=== PATIENT | male | born 1965 | race Caucasian/White ===

== ENCOUNTER 2017-08-11 19:43 | Inpatient (IN) ==
--- NOTE | 2017-08-11 19:57 | Emergency Department Note ---
Disposition Clinical Impression: NSTEMI (non-ST elevated myocardial infarction), Elevated troponin Chest pain Qualifiers: Chest pain type: unspecified Qualified Code(s): R07.9 - Chest pain, unspecified Disposition: Admitted As Inpatient Condition: Good Time of Disposition: 22:55 Chest Pain HPI - General Chief Complaint: ED Chest Pain Stated Complaint: cp Time Seen by Provider: 08/11/17 19:52 Source: patient Mode of arrival: ambulatory Limitations: no limitations Vital Signs Reviewed: Yes Nursing Notes Reviewed: Yes - History of Present Illness HPI Narrative: Patient is a 51-year-old male with past medical history of diabetes, no previous CAD. He presents today due to chest pain. The patient says that he has had chest pain in the center of his chest described as a dull ache, worse with exertion since last Thursday. It is intermittent, mainly occurs only when he is exerting himself. No radiation to arms back or jaw. Denies any associated shortness of breath, nausea, vomiting, sweating. He had an episode last Thursday and said that it went away after a few minutes. He had return of his chest pain last night, same description and symptoms as above. He also had several episodes of chest pain throughout today, starting when he first woke up out of sleep. Denies any other unilateral leg swelling, calf pain, long car rides, recent surgeries. Denies any previous VA or previous stents. He was seen at [facility] today, had an elevation in V3 at that time and had an elevated troponin level of 0.4. He was strongly encouraged to be transferred to our facility for further care/intervention/cardiology consult. However, patient refused and signed out AMA. A couple hours later, he drove here for further evaluation. Patient currently denies any chest pain, shortness breath, nausea, vomiting, fevers, abdominal pain. Severity scale (1-10): 0 - Related Data Home Medications Medication Instructions Recorded Confirmed Aspirin Enteric Coated [Aspirin EC] 325 mg PO DAILY 08/11/17 08/11/17 Metoprolol XL (24 HR) Succ [Toprol 25 mg PO DAILY 08/11/17 08/11/17 XL] Nitroglycerin [Nitrostat] 0.4 mg SL Q5M PRN 08/11/17 08/11/17 metFORMIN [Glucophage] 500 mg PO BIDWM 08/11/17 08/11/17 Allergies Allergy/AdvReac Type Severity Reaction Status Date / Time mushroom Allergy Anaphylaxis Verified 08/11/17 17:39 All systems ED: reviewed and negative except as stated. Constitutional: Denies: fever Cardiovascular: Denies: chest pain Respiratory: Denies: dyspnea Gastrointestinal: Denies: abdominal pain, nausea, vomiting, diarrhea Genitourinary: Denies: urgency, dysuria Integumentary: Denies: rash Neurological: Denies: headache, weakness, numbness, paresthesias Chest Pain PMH - Past Medical History Medical history: Reports: diabetes, hypertension, myocardial infarction Psychiatric history: Reports: no psych history - Social History Smoking Status: Never smoker Alcohol use: Reports: none Drug use: Reports: none Physical Exam - General Limitations: no limitations General appearance: alert, in no apparent distress - Head Head exam: atraumatic, normocephalic, normal inspection - Eye Eye exam: Present: normal appearance, PERRL, EOMI - ENT ENT exam: normal exam, normal oropharynx, mucous membranes moist - Neck Neck exam: Present: normal inspection, full ROM, trachea midline - Chest Chest inspection: Present: normal inspection, symmetric chest wall rise - Respiratory Respiratory exam: Present: normal lung sounds bilaterally - Cardiovascular Cardiovascular exam: Present: regular rate, normal rhythm, normal heart sounds - Abdominal Exam Abdominal exam: Present: soft, Non-Tender. Absent: tenderness, distention, guarding, rebound, rigidity - Extremities Exam Extremities exam: Present: normal inspection, full ROM. Absent: tenderness, pedal edema - Neurological Exam Neurological exam: Present: alert, oriented X3 - Psychiatric Psychiatric exam: Present: normal affect, normal mood - Skin Skin exam: Present: warm, dry, intact, normal color Course Course Narrative: Patient is currently not having any chest pain or shortness of breath. EKG obtained and showed ST elevation in V3 but no other ST changes. I talked with disabilities caregiver Dr. Brenda Miles at 20:09 and sent the EKG to her for evaluation along with previous EKG that was done at [facility] and also old EKG from 08/04/2017. She reviewed these and stated that there was no STEMI arteria. She recommended giving the patient an additional 90 mg upper left as he received 1 mg of prolapse at [facility] prior to arrival. She also recommended that we start heparin drip and a nitroglycerin drip even though the patient has no chest pain at this time. Patient was accepted by hospitalist Dr. Vuong for [facility] care for NSTEMI. 22:51 after patient was accepted for admission, he had return of chest pain and his oxygen saturation dropped to 88%. CTA of the chest was ordered and patient was titrated up on nitroglycerin. His chest pain is now currently down to 1. CTA of the chest abdomen and pelvis showed no pulmonary embolism but did show large bilateral pleural effusions with interstitial and alveolar pulmonary edema. No signs of any aortic dissection. Also possible superimposed pneumonia. Patient was started on Levaquin. Troponin came back elevated at 0.89 Repeat EKGs showed no changes in ST elevation in lead V3. We contacted Dr. Miles again around 22:45. Discussed case symptoms, vitals, lab results with new troponin elevation and return of chest pain, now down to 1 out of 10. She wanted to stay the course with heparin drip and nitro drip at this time. No recommendation for any other intervention or cath at this time. Information relayed to Dr. Vuong Chest CTA 08/11/17 21:11 IMPRESSION: No evidence of an acute aortic syndrome. Negative for acute pulmonary embolism. Large bilateral pleural effusions with interstitial and alveolar pulmonary edema. No acute abdominopelvic findings. D/ / 08/11/2017 22:23:52 Jose Sheffield / henry Interpreting Provider: Jose Sheffield Abdomen/Pelvis CTA 08/11/17 21:21 IMPRESSION: No evidence of an acute aortic syndrome. Negative for acute pulmonary embolism. Large bilateral pleural effusions with interstitial and alveolar pulmonary edema. No acute abdominopelvic findings. D/ / 08/11/2017 22:23:52 Jose Sheffield / henry Interpreting Provider: Jose Sheffield Vital Signs Temperature 98.3 F 08/11/17 19:48 Pulse Rate 103 08/11/17 19:48 Respiratory Rate 18 08/11/17 19:48 Blood Pressure 142/87 08/11/17 19:48 O2 Sat by Pulse Oximetry 92 08/11/17 19:48 Temperature 98.3 F 08/11/17 19:48 Pulse Rate 98 08/11/17 21:19 Respiratory Rate 21 08/11/17 21:21 Blood Pressure 131/89 08/11/17 21:19 O2 Sat by Pulse Oximetry 89 08/11/17 21:21 Oxygen Delivery Oxygen Delivery Room Air Chest Pain - MDM Narrative Medical decision making narrative: Patient is currently not having any chest pain or shortness of breath. EKG obtained and showed ST elevation in V3 but no other ST changes. I talked with disabilities caregiver Dr. Brenda Miles at 20:09 and sent the EKG to her for evaluation along with previous EKG that was done at [facility] and also old EKG from 08/04/2017. She reviewed these and stated that there was no STEMI arteria. She recommended giving the patient an additional 90 mg upper left as he received 1 mg of prolapse at [facility] prior to arrival. She also recommended that we start heparin drip and a nitroglycerin drip even though the patient has no chest pain at this time. Patient was accepted by hospitalist Dr. Vuong for [facility] care for NSTEMI. 22:51 after patient was accepted for admission, he had return of chest pain and his oxygen saturation dropped to 88%. CTA of the chest was ordered and patient was titrated up on nitroglycerin. His chest pain is now currently down to 1. CTA of the chest abdomen and pelvis showed no pulmonary embolism but did show large bilateral pleural effusions with interstitial and alveolar pulmonary edema. No signs of any aortic dissection. Also possible superimposed pneumonia. Patient was started on Levaquin. Troponin came back elevated at 0.89 Repeat EKGs showed no changes in ST elevation in lead V3. We contacted Dr. Miles again around 22:45. Discussed case symptoms, vitals, lab results with new troponin elevation and return of chest pain, now down to 1 out of 10. She wanted to stay the course with heparin drip and nitro drip at this time. No recommendation for any other intervention or cath at this time. Information relayed to Dr. Vuong - Medical Records Medical records reviewed: Yes I reviewed the patient's medical records. - Lab Data Lab results reviewed: Yes I reviewed the patient's lab results. Result diagrams: 08/11/17 19:50 Lab Results 08/11/17 08/11/17 Range/Units 19:50 19:50 WBC 10.9 (4.3-11.1) K/mcL RBC 4.30 (4.19-5.50) M/mcL Hgb 11.9 L (12.9-16.9) g/dL Hct 36.3 L (37.5-50.1) % MCV 84.4 (83.0-100.0) fL MCH 27.7 L (28.0-33.3) pg MCHC 32.8 (31.6-35.5) g/dL RDW 14.8 H (11.5-14.5) % Plt Count 271 (140-400) K/mcL MPV 11.3 (9.4-12.4) fL PT 12.2 H (9.4-12.1) Seconds INR 1.1 APTT 30.7 (26.0-36.0) Seconds - Radiology Data Radiology results reviewed: Yes I reviewed the patient's radiology results. Chest CTA 08/11/17 21:11 IMPRESSION: No evidence of an acute aortic syndrome. Negative for acute pulmonary embolism. Large bilateral pleural effusions with interstitial and alveolar pulmonary edema. No acute abdominopelvic findings. D/ : / 08/11/2017 22:23:52 Jose Sheffield / henry Interpreting Provider: Jose Sheffield Abdomen/Pelvis CTA 08/11/17 21:21 IMPRESSION: No evidence of an acute aortic syndrome. Negative for acute pulmonary embolism. Large bilateral pleural effusions with interstitial and alveolar pulmonary edema. No acute abdominopelvic findings. D/ : / 08/11/2017 22:23:52 Jose figueroa Interpreting Provider: Jose Sheffield - EKG Data EKG attestation: Yes I reviewed and interpreted this EKG. EKG results narrative: EKG #1 08/11/2017 at 19:49. Sinus tachycardia. Rate 103. AL 140. QRS 88. QTC 352. Mild left axis deviation. ST elevation in V3. No other acute ST changes. EKG #2. 08/11/2017 at 20:56. Sinus tachycardia. Rate 102. AL 144. QRS 88. QTC 357. Mild left axis deviation. ST elevation in V3 but no other ST elevation EKG #3. 08/11/2017 at 21:15. Normal sinus rhythm. Rate 99. AL 144. QRS 90. QTC 370. Mild left axis deviation. ST elevation in V3 unchanged. EKG #4. 08/11/2017 at 22:10. Sinus tachycardia. Rate 109. AL 132. QRS 87. QTC 381. Mild left axis deviation. Acute ST elevation in V3 unchanged. Clifford - Clifford Situation: Demographics, MOA Background: Presenting Complaint, Relevant PMH, Meds, & Allergies Assessment: Vital Signs, Course and respsone to treatment, Exam Concerns, Patient/Family Expectation, Pertinant Lab Results Recommendation: Barrier(s) to disposition, Recommendation based on pending studies, treatments, or consults Clifford Report Given to: Dr. Yevgeniy Horton Repor Time: 22:55 Attestation Statement - Attestation Attestation: I, Blade Trevizo DO, examined this patient [id number] and my medical decision-making was reviewed with Dr. Pascual García, Resident Physician. I agree with the documented findings, disposition and treatment plan as described except to the extent set forth below. Please see my progress notes for details.
[2017-08-11] MEDS ORDERED: *HR* Heparin 5,000 UNIT/ML VIAL IVP PRN ×2 (20:01)
[2017-08-11] MEDS ORDERED: *HR* Heparin 5,000 UNIT/ML VIAL IVP ONE (20:01)
[2017-08-11] MEDS ORDERED: *HR* Ticagrelor 90 MG TABLET PO ONE (20:10)
[2017-08-11 20:29] LABS: Hematocrit 36.3 % (37.5-50.1); Hemoglobin 11.9 g/dL (12.9-16.9); Mean Corpuscular HGB Conc 32.8 g/dL (31.6-35.5); Mean Corpuscular Hemoglobin 27.7 pg (28.0-33.3); Mean Corpuscular Volume 84.4 fL (83.0-100.0); Mean Platelet Volume 11.3 fL (9.4-12.4); Platelet Count 271 K/mcL (140-400); Red Cell Distribution Width 14.8 % (11.5-14.5)
[2017-08-11 20:36] LABS: INR 1.1; Prothrombin Time 12.2 Seconds (9.4-12.1)
[2017-08-11 20:38] LABS: Activated Partial Thrombo Time 30.7 Seconds (26.0-36.0)
[2017-08-11] MEDS: Nitroglycerin 25 MG/250 ML INFUS..BTL IVC SCH (20:45)
--- NOTE | 2017-08-11 20:47 | Emergency Department Note ---
Disposition Clinical Impression: NSTEMI (non-ST elevated myocardial infarction), Elevated troponin Chest pain Qualifiers: Chest pain type: unspecified Qualified Code(s): R07.9 - Chest pain, unspecified Disposition: Admitted As Inpatient Condition: Good Referrals: James Bowers MD [Primary Care Provider] - Time of Disposition: 22:34 General Adult HPI - General Chief complaint: ED Chest Pain Stated complaint: cp Time Seen by Provider: 08/11/17 19:52 Source: patient Mode of arrival: ambulatory Limitations: no limitations - History of Present Illness Pain Scale: 0 - Related Data Home Medications Medication Instructions Recorded Confirmed Aspirin Enteric Coated [Aspirin EC] 325 mg PO DAILY 08/11/17 08/11/17 Metoprolol XL (24 HR) Succ [Toprol 25 mg PO DAILY 08/11/17 08/11/17 XL] Nitroglycerin [Nitrostat] 0.4 mg SL Q5M PRN 08/11/17 08/11/17 metFORMIN [Glucophage] 500 mg PO BIDWM 08/11/17 08/11/17 Allergies Allergy/AdvReac Type Severity Reaction Status Date / Time mushroom Allergy Anaphylaxis Verified 08/11/17 17:39 Past Medical History - Past Medical History Medical history: Reports: diabetes, hypertension, myocardial infarction Psychiatric history: Reports: no psych history - Social History Smoking Status: Never smoker Smokeless Tobacco Status: No Alcohol use: Reports: none Drug use: Reports: none Physical Exam - General Limitations: no limitations General appearance: alert, in no apparent distress Course Vital Signs Temperature 98.3 F 08/11/17 19:48 Pulse Rate 103 08/11/17 19:48 Respiratory Rate 18 08/11/17 19:48 Blood Pressure 142/87 08/11/17 19:48 O2 Sat by Pulse Oximetry 92 08/11/17 19:48 Temperature 98.3 F 08/11/17 19:48 Pulse Rate 98 08/11/17 21:19 Respiratory Rate 21 08/11/17 21:21 Blood Pressure 131/89 08/11/17 21:19 O2 Sat by Pulse Oximetry 89 08/11/17 21:21 Oxygen Delivery Oxygen Delivery Room Air Medical Decision Making - Lab Data Result diagrams: 08/11/17 19:50 Lab Results 08/11/17 08/11/17 08/11/17 Range/Units 19:50 19:50 21:30 WBC 10.9 (4.3-11.1) K/mcL RBC 4.30 (4.19-5.50) M/mcL Hgb 11.9 L (12.9-16.9) g/dL Hct 36.3 L (37.5-50.1) % MCV 84.4 (83.0-100.0) fL MCH 27.7 L (28.0-33.3) pg MCHC 32.8 (31.6-35.5) g/dL RDW 14.8 H (11.5-14.5) % Plt Count 271 (140-400) K/mcL MPV 11.3 (9.4-12.4) fL PT 12.2 H (9.4-12.1) Seconds INR 1.1 APTT 30.7 (26.0-36.0) Seconds Troponin I 0.89 H* (< 0.04) ng/mL Critical Care Time Critical Care Time: Yes Total Critical Care Time: 45 Attestation: Critical care performed: Time is exclusive of separately billable procedures. Time includes: direct patient care, patient reassessment, coordination of patient care, interpretation of data (laboratory data, radiology data, and respiratory data), review of patient's medical records, medical consultation and documentation of patient care. Procedures included in critical care time: Procedures excluded from critical care time: Attestation Statement - Attestation Attestation: I, Blade Trevizo DO, examined this patient [id number] and my medical decision-making was reviewed with Dr. Pascual García, Resident Physician. I agree with the documented findings, disposition and treatment plan as described except to the extent set forth below. Please see my progress notes for details. 51-year-old male presents emergency room after signing out AGAINST MEDICAL ADVICE from an outside facility just prior to arrival here. Patient was seen and evaluated for cardiac chest pain. He was discussed and reviewed with the technical communicator at outside facility recommended come to the emergency room at our facility for evaluation. Patient did not want be transported by squad decided to leave AGAINST MEDICAL ADVICE that time. Patient has had on and off chest pain for several days at this point. EKG from the outside facility was reviewed. There was possibility of ST segment elevation in lead V2. Patient presented here completely asymptomatic with no chest pain. He denies any fevers or chills nausea vomiting or diarrhea. Denies any headache vision changes at this point. He has no shortness of breath. His main complaint is intermittent chest discomfort. Patient has no specific cardiac history at this time. EKG was collected initially does show possible 0.5 mm of elevation the V2 there is a downsloping MN interval in lead V3 and no specific signs of ST segment elevation this time. There is no reciprocal changes. Patient's EKG was reviewed with the on-call technical communicator Dr. Brenda Ibarra within 10 minutes of arrival here to the emergency room. She agreed that there is no acute signs of ST segment elevation or concern for myocardial infarction at this time because the patient an elevated troponin at 0.4 she recommended starting the patient on heparin and nitroglycerin drip and increasing the initial dose of brilinta from 90-180 mg. Patient is asymptomatic at this point. He will be admitted to the hospital for definitive management. No other acute issues at this time. Patient will have 45 minutes of critical care applied secondary to multi-disciplinary intervention as well as evaluation and management of the nitroglycerin and the heparin drip. Patient is informed of the plan and they are comfortable with the disposition of this time. Hospitalist was contacted. No other acute findings noted. Patient denies any dark black stool or history of GI bleed. Lungs are clear heart is regular chest x-ray from outside facility shows stable signs of the mediastinum with no acute signs of widening at this point. Low clinical concern for other etiology at this point. Patient is asymptomatic. See detailed documentation of the physical exam, medical intervention, medical decision-making and disposition in the resident physician' s note. 2100 Patient had reemergence of the chest pain. He describes his mid sternal pressure. Nitroglycerin drip was titrated up at this time. EKG was collected with no significant changes at this point. Repeat troponin is pending. Patient was hypoxic so CT angiography of the chest and abdomen were ordered at this time. [address] angiography does not show any acute signs of dissection. He does have bilateral pleural effusion with what looks like possible infiltrate infection the base of the bilateral lungs. No visible signs of pulmonary emboli based on my review. Antibiotic regimen will be ordered if needed at this point. Patient still has chest pressure and pain. Nitroglycerin has not been titrated up to 100 g. Fentanyl will be ordered for symptomatic control. The hospitalist Dr. Vuong is at the bedside evaluating the patient as well as this point. His hypoxia appears to be responding to oxygen at this point in breathing treatments. 1025 Repeat troponin is 0.89. Pain is now almost completely resolved with the fentanyl and nitroglycerin drip. Patient will be admitted for definitive management he has a heparin drip appropriate anticoagulation and nitroglycerin drip and place.
[2017-08-11] MEDS ORDERED: *HR* Ticagrelor 90 MG TABLET PO SCH (21:00)
[2017-08-11] MEDS: Heparin 25,000 UNIT/500 ML D5W 25,000 UNIT/500 ML BAG IVC SCH (21:11)
[2017-08-11] MEDS ORDERED: Ipratropium/Albuterol Neb 3 ML IH ONE (21:12)
[2017-08-11] MEDS ORDERED: *HR* FentaNYL (PF) 100 MCG/2 ML VIAL IVP ONE (21:48)
[2017-08-11] MEDS ORDERED: 0.9 % Sodium Chloride 1,000 ML IVC ONE (22:10)
[2017-08-11] MEDS ORDERED: Levofloxacin 750 MG/150 ML 750 MG/150 ML BAG IVPB ONE (22:10)
[2017-08-11] MEDS ORDERED: 0.9 % Sodium Chloride 1,000 ML IVC SCH (22:30)
[2017-08-11] MEDS ORDERED: D5% in Water 1,000 ML IVC PRN (22:37)
[2017-08-11] MEDS ORDERED: Naloxone 0.4 MG/ML INJ IVP PRN (22:37)
[2017-08-11] MEDS ORDERED: Acetaminophen 325 MG TABLET PO PRN (22:37)
[2017-08-11] MEDS ORDERED: Dextrose Gel 15 GM/37.5 ML TUBE PO PRN ×2 (22:37)
[2017-08-11] MEDS ORDERED: *HR* Dextrose 50 % in Water (Syg) 50 ML SYRINGE IVP PRN (22:37)
[2017-08-11] MEDS ORDERED: *HR* FentaNYL (PF) 100 MCG/2 ML VIAL IVP PRN (22:43)
[2017-08-11] MEDS ORDERED: Levalbuterol Neb 1.25 MG/3 ML IH PRN (22:43)
--- NOTE | 2017-08-11 22:58 | Internal Med History&Physical ---
Date of Encounter: 08/11/17 Time of Encounter: 22:10 Internal Medicine - H&P: HPI Chief complaint: chest pain Admitted From: Emergency Dept Plans for Post Hospital Care: Home History of present illness: Mr. Coelho is a 51 year old male who [facility] of [facility]. He had presented to [facility] and had workup performed there. It was recommended patient be transferred and admitted to [facility]. However, he signed out AMA and drove himself here. He was evaluated in ER with active chest pain. Work-up included EKG showing ST elevation in one lead only in V3 and troponin of 0.40. EKG was evaluated by Dr. Brenda Miles, and she requested patient be placed on NTG drip and heparin drip. She also did not feel he was having a STEMI. He was therefore admitted to the hospitalist service with a cardiology consult. Shortly after I received a call from the ER, patient developed some hypoxemia with worsening chest pain. He was taken to CAT scan to rule out PE and/or aortic dissection. CT scan was negative, but he did have evidence of pleural effusions and some alveolar and interstitial edema. I came to ER to see patient. He was still having anginal type chest pain at that time. His pain almost completely resolved with one dose of fentanyl shortly thereafter. Repeat EKG done at that moment was unchanged, and I reviewed all of his EKGs which were identical. He describes his pain as heaviness associated with dyspnea. Pain radiates to his left arm. Chest pain worsens with exertion and improves with rest. Symptoms started roughly a week ago and have persisted since then. He denies any fevers, chills, or night sweats. He has had a nonproductive cough, however. He denies any weight gain, increased abdominal girth, or lower extremity edema. Family history is negative for heart disease except for his uncle who at age 65 of heart attack. There is no other family history of heart disease. He does not smoke and never has smoked. Repeat troponin in the ER was 0.89. However, by this time, his chest pain was almost completely resolved. Dr. Miles was notified by the ER staff again regarding his elevated troponin and recurrence of chest pain despite nitroglycerin drip and heparin drip. Past Med Surg Social Fam HX - Past Medical History Attestation: Yes The following information was validated with the patient. Source: patient, other (ER and [facility] records) Medical history: diabetes, hypertension Psychiatric history: no psych history - Past Surgical History Surgical History: no surgical history - Social History Smoking Status: Never smoker Smokeless Tobacco Status: No Alcohol use: none Drug use: none Occupational status: employed Current living situation: Home - Independent Activity Level: Independent ambulation, Very active Recent Out of Country Travel Within the Last 8 Weeks: No - Family History Mother Hx Family Cardiac Disorders: No Hx Family Cancer: Yes Father Hx Family Cardiac Disorders: No Hx Family Cancer: Yes - Additional Family History Additional family history: Uncle from [place] at 65 yo Internal Medicine - H&P: Meds Aspirin Enteric Coated [Aspirin EC] 325 mg PO DAILY 08/11/17 [History] Metoprolol XL (24 HR) Succ [Toprol XL] 25 mg PO DAILY 08/11/17 [History] Nitroglycerin [Nitrostat] 0.4 mg SL Q5M PRN 08/11/17 [History] metFORMIN [Glucophage] 500 mg PO BIDWM 08/11/17 [History] 3 Allergy/AdvReac Type Severity Reaction Status Date / Time mushroom Allergy Anaphylaxis Verified 08/11/17 17:39 - Constitutional Constitutional: fatigue, no chills, no fever(s), no night sweats - EENT Eyes: no blurry vision, no change in vision Ears: no ear pain, no tinnitus Nose, mouth and throat: no nasal congestion, no nasal discharge, no sinus pressure, no sore throat - Cardiovascular Cardiovascular ROS IM: chest pain, dyspnea, dyspnea on exertion, no palpitations , no paroxysmal nocturnal dyspnea, no syncope - Respiratory Respiratory: cough, dyspnea, no hemoptysis, no wheezing, no pain on inspiration , no chest congestion, no excessive phlegm production, no change in phlegm color , no pain with cough - Gastrointestinal Gastrointestinal: no abdominal pain, no diarrhea, no hematemesis, no hematochezia, no melena, no nausea, no vomiting - Genitourinary Genitourinary ROS male: no dysuria, no flank pain, no nocturia - Musculoskeletal Musculoskeletal ROS IM: no arthralgias, no back pain, no limited range of motion - Integumentary Integumentary IM: no rash, no jaundice - Neurological Neurological ROS: no dizziness, no focal weakness, no frequent falls, no headache(s) - Psychiatric Psychiatric: no anxiety, no depression - Endocrine Endocrine IM: no polydipsia, no polyuria - Hematologic/Lymphatic Hematologic/Lymphatic: no easy bruising, no lymphadenopathy - Allergic/Immunologic Allergic/Immunologic: no wheezing, no GI upset with certain foods - Constitutional Vitals: Temp Pulse Resp BP Pulse Ox 98.3 F 98 21 131/89 89 08/11/17 19:48 08/11/17 21:19 08/11/17 21:21 08/11/17 21:19 08/11/17 21:21 General appearance: Present: cooperative, mild distress, A&O X 3, pleasant, answers questions appropriately - Head Head exam: Present: atraumatic, normal inspection - Eye Eye exam: Present: EOMI, normal appearance, PERRL. Absent: scleral icterus Pupils: Present: normal accommodation - ENT ENT exam: Present: mucous membranes dry, normal exam, normal oropharynx - Neck Neck exam general surgery: Present: full ROM, supple. Absent: lymphadenopathy, tenderness, nuchal rigidity, thyromegaly - Respiratory Respiratory exam: Present: rales (both bases; left greater than right), respiratory distress (mild). Absent: accessory muscle use, chest wall tenderness, wheezes - Cardiovascular Cardiovascular exam: Present: distant heart sounds, +S1, +S2, tachycardia. Absent: diastolic murmur, JVD, systolic murmur - GI/Abdominal GI/Abdominal exam: Present: normal bowel sounds, soft. Absent: guarding, hepatomegaly, mass, rebound, splenomegaly, tenderness - Extremities Exam Extremities exam: Present: full ROM, normal capillary refill, warm, radial pulses palpable and symmetrical. Absent: calf tenderness, joint swelling, pedal edema - Back Exam Back exam: Present: normal inspection. Absent: CVA tenderness (L), CVA tenderness (R) - Neurological Exam Neurological exam: Present: alert, CN II-XII intact, oriented X3, no focal deficits, strengths equal and symetr throughout - Psychiatric Psychiatric exam: Present: normal affect, normal mood - Skin Skin exam: Present: dry, warm. Absent: rash Internal Med - H&P Results - Labs CBC & Chem 7: 08/11/17 19:50 Labs: Cardiac Enzymes 08/11/17 Range/Units 21:30 Troponin I 0.89 H* (< 0.04) ng/mL - EKG Data -: EKG Interpreted by Myself - EKG Data EKG comments: 08/11/17 23:11 Sinus tachycardia; ST elevation in one lead only -- V3; unchanged from prior EKG 's done today [facility] [place] [facility]. - Diagnostic Studies Chest x-ray Status: image reviewed by me (multifocal airspace opacities, pleural effusion) CT scan - chest Additional comments: Report reviewed - VTE Reasons for not Prescribing Prophylaxis: Not indicated-Anticoagulated or INR therapeutic - Assessment and plan (1) NSTEMI (non-ST elevated myocardial infarction) Current Visit: Yes Status: Acute Assessment and plan: 1. Continue NTG and heparin drips. 2. Trend troponins and EKG's. 3. ECHO in the morning. 4. Cardiology consulted by ER staff. 5. Will use Fentanyl as needed for chest pain. 6. Continue BB, Brilinta, ASA, and add STATIN. (2) Pneumonia Current Visit: Yes Status: Suspected Assessment and plan: 1. Patient has Xray and CT scan imaging suggestive of pneumonia. However, this could be CHF as well despite negative exam findings of CHF. 2. Blood cultures ordered in ER. 3. Continue Levaquin and aerosols PRN. 4. Oxygen as needed for support. Qualifiers: Pneumonia type: due to unspecified organism Laterality: bilateral Lung location: unspecified part of lung Qualified Code(s): J18.9 - Pneumonia, unspecified organism (3) Type 2 diabetes mellitus Current Visit: Yes Status: Chronic Assessment and plan: 1. Hold Metformin. 2. Will use SSI and adjust dose as necessary. Qualifiers: Diabetes mellitus application services manager insulin use: without application services manager use Diabetes mellitus complication status: without complication Qualified Code(s): E11.9 - Type 2 diabetes mellitus without complications (4) NEL (acute kidney injury) Current Visit: Yes Status: Acute Assessment and plan: 1. Will give nallely IVF and monitor I/O and daily weight. 2. If patient develops clinical signs/symptoms of CHF, he will need diuresis and cessation of IVF. 3. Monitor renal function and consult nephrology if necessary. (5) DVT prophylaxis Current Visit: Yes Status: Acute Assessment and plan: 1. Heparin drip per ACS protocol.
[2017-08-11] MEDS: 0.9 % Sodium Chloride 1,000 ML IVC SCH (23:52)
[2017-08-12] MEDS: Nitroglycerin 25 MG/250 ML INFUS..BTL IVC SCH ×3 (01:46→13:40)
[2017-08-12 03:27] LABS: Basophils % 0.2 %; Eosinophils % 0.2 %; Hematocrit 28.4 % (37.5-50.1); Immature Granulocytes % 0.2 % (0-4); Lymphocytes # 0.8 K/mcL (0.6-4.6); Lymphocytes % 9.3 %; Mean Corpuscular HGB Conc 33.1 g/dL (31.6-35.5); Mean Corpuscular Hemoglobin 27.6 pg (28.0-33.3); Mean Corpuscular Volume 83.3 fL (83.0-100.0); Mean Platelet Volume 11.3 fL (9.4-12.4); Monocytes # 0.8 K/mcL (0.0-1.3); Monocytes % 9.3 %; Neutrophils # 7.2 K/mcL (1.6-8.9); Platelet Count 217 K/mcL (140-400); Red Blood Count 3.41 M/mcL (4.19-5.50); Red Cell Distribution Width 14.5 % (11.5-14.5); Segmented Neutrophils % 80.8 %
[2017-08-12 03:28] LABS: Hemoglobin 9.4 g/dL (12.9-16.9)
[2017-08-12 03:41] LABS: INR 1.2; Prothrombin Time 13.4 Seconds (9.4-12.1)
[2017-08-12 03:43] LABS: Alanine Aminotransferase 12 Units/L (7-52); Albumin/Globulin Ratio 1.2 (1.1-2.2); Alkaline Phosphatase 51 Units/L (34-104); Aspartate Amino Transferase 12 Units/L (13-39); BUN/Creatinine Ratio 25 (6-26); Bilirubin,Total 0.5 mg/dL (0.3-1.0); Blood Urea Nitrogen 33 mg/dL (6-20); Calcium 8.2 mg/dL (8.6-10.3); Carbon Dioxide 19 mEq/L (23-29); Chloride 109 mEq/L (98-107); Chol/HDL Ratio 5.4 (0-4.9); Cholesterol 125 mg/dL (< 200); Globulin 2.6 g/dL (2.4-3.5); Glucose 258 mg/dL (70-105); HDL Cholesterol 23 mg/dL (40-59); LDL Cholesterol,Calculated 82 mg/dL (0-99); Magnesium 1.8 mg/dL (1.6-2.6); Osmolality,Calculated 298 (280-300); Potassium 4.5 mEq/L (3.5-5.1); Sodium 136 mEq/L (136-145); Total Protein 5.6 g/dL (6.4-8.9); Triglycerides 102 mg/dL (< 150); eGFR For African Americans > 60 (> 60); eGFR For Non-African Americans 56 (> 60)
[2017-08-12 08:20] LABS: Estimated Average Glucose 151 mg/dl; Hemoglobin A1C 6.9 %
--- NOTE | 2017-08-12 08:45 | Cardiology Consult Note ---
Addendum entered and electronically signed by Wai Barr CNP 08/12/17 13:27: Given orthopnea and large bilateral pleural effusions on chest CT, will consult IR for thoracentesis. Plan for LHC tomorrow. Will discuss with Dr. Conde regarding when to start Lasix--CT with contrast yesterday with mildly elevated creatinine and plan for contrast with LHC tomorrow. Original Note: <Wai Barr - Last Filed: 08/12/17 08:40> Date of Encounter: 08/12/17 Time of Encounter: 08:40 Assessment and Plan (1) NSTEMI (non-ST elevated myocardial infarction) Status: Acute Troponins 0.40, 0.89, 0.93. Presented with ongoing typical chest pain symptoms over the past week, per HPI. Chest CTA large bilateral pleural effusions. Check TTE to evaluate structure and function. Recommend LHC to further evaluate. R/B/A discussed. Pt agrees to proceed with LHC today. HGB 9.4 today--suspect dilutional, as pt is currently on heparin and nitro gtt and maintenance IV fluids. Denies active bleeding. On heparin and nitro gtt. Started ASA, Statin, BB. Continue to follow. (2) NEL (acute kidney injury) Status: Acute Creatinine was 1.54 on presentation, improved 1.34 today, on IV fluids. Continue to monitor closely s/p LHC. Discussion w patient/family: The assessment and plan as outlined above was discussed with the patient and/or family members who expressed understanding and agreement. All questions were answered. Thank you for involving us in the care of your patient. Please call with any questions. I will discuss all the above with Dr. Conde and make changes as necessary. History of Present Illness Consult date: 08/12/17 Requesting physician: Facundo Vuong Consult reason: NSTEMI Chief complaint: chest pain History of present illness: Mr. Coelho is a 51 year old male with PMH of recently diagnosed DM who presented to the ER last night with complaints of chest pain. He had presented to [place] ER and had workup performed there. It was recommended patient be transferred and admitted to [facility]. However, he signed out AMA and drove himself here. He reports symptoms initially started 1 week ago. He began experiencing midsternal chest pain, heavy in nature with radiation to left arm, associated with dyspnea and diaphoresis. Symptoms worsened on exertion, improved with rest. He has also been experiencing orthopnea. Troponins found to be 0.40, 0.89, 0.93. Chest CTA with large bilateral pleural effusions. Currently on heparin and nitro gtt at 60. Reports chest pain is less than a 1/ 10. Past Med Surg Social Fam HX - Past Medical History Medical history: diabetes, hypertension Psychiatric history: no psych history - Past Surgical History Surgical History: no surgical history - Social History Smoking Status: Never smoker Smokeless Tobacco Status: No Alcohol use: none Drug use: none - Family History Mother Hx Family Cardiac Disorders: No Hx Family Cancer: Yes Father Hx Family Cardiac Disorders: No Hx Family Cancer: Yes Medications and Allergies Aspirin Enteric Coated [Aspirin EC] 325 mg PO DAILY 08/11/17 [History] Metoprolol XL (24 HR) Succ [Toprol Xl] 25 mg PO DAILY 08/11/17 [History] Nitroglycerin [Nitrostat] 0.4 mg SL Q5M PRN 08/11/17 [History] metFORMIN [Glucophage] 500 mg PO BIDWM 08/11/17 [History] Atorvastatin [Lipitor] 80 mg PO HS tablet 08/14/17 [Rx] 3 Allergy/AdvReac Type Severity Reaction Status Date / Time mushroom Allergy Anaphylaxis Verified 08/11/17 17:39 All Systems Review: The remainder of the systems were reviewed and are negative - Cardiovascular Cardiovascular: as per HPI, chest pain with exertion, diaphoresis, dyspnea on exertion, radiating jaw, neck or arm pain, orthopnea - Respiratory Respiratory: dyspnea Physical Examination Vital Signs, Last 4 Hours Temp Pulse Resp BP Pulse Ox 08/12/17 07:00 98.2 F 08/12/17 06:00 96 15 101/63 96 08/12/17 05:26 98.1 F Vital Signs Temp Pulse Resp BP Pulse Ox 08/12/17 07:00 98.2 F 08/12/17 06:00 96 15 101/63 96 08/12/17 05:26 98.1 F 08/12/17 04:00 98.1 F 96 12 104/66 96 08/12/17 03:00 98 15 99/63 96 08/12/17 02:00 98 15 93/64 96 08/12/17 01:00 98 15 106/72 95 08/12/17 00:00 101 15 103/65 95 08/11/17 23:34 97.5 F L 114 18 121/85 95 08/11/17 22:56 18 105/69 08/11/17 21:21 21 89 08/11/17 21:19 98 20 131/89 86 08/11/17 19:48 98.3 F 103 18 142/87 92 Intake and Output 08/11/17 08/12/17 08/12/17 23:59 07:59 15:59 Intake Total 12.4 / 12.4 707.6 / 707.6 Output Total 400 / 400 Balance 12.4 / 12.4 307.6 / 307.6 Intake: IV Fluids 12.4 / 12.4 587.6 / 587.6 Heparin 25,000 UNIT/500 ML D5W 100 / 100 25,000 unit In 500 ml @ 12 UNIT /KG/HR 17.309 mls/hr IVC .Q24H KAR Rx#:[id number] Nitroglycerin Premix 25 MG/250 12.4 / 12.4 487.6 / 487.6 ML 25 mg In 250 ml @ 5 MCG/MIN 3 mls/hr IVC .Q24H KAR Rx#: [id number] Oral 0 / 0 120 / 120 Output: Urine 400 / 400 Other: Meal NPO Weight 72.121 kg Blood Glucose* 207 241 General: Conversant, No Apparent Distress HEENT: Atraumatic, Normocephaly, Mucus Membranes Moist Neck: No JVD, Normal carotid pulses Cardiac: Reg Rate and Rhythm, Normal S1 and S2, No Murmur Lungs: Normal Breath Sounds, No Wheeze, Rales, Rhonchi Neuro: Alert and responsive, No focal deficits noted Abdomen: Soft, Non-Tender Skin: No rashes noted on visualized skin Musculoskeletal: No Chest Wall Tenderness Extremities: No Clubbing, No Cyanosis, No Edema, Normal Pulses Results 08/12/17 03:07 08/12/17 03:07 Lab Results 08/12/17 08/12/17 08/12/17 03:07 03:07 03:07 WBC 8.9 Hgb 9.4 L D Hct 28.4 L Plt Count 217 INR 1.2 APTT 37.0 H Sodium Potassium Chloride Carbon Dioxide BUN Creatinine Glucose Calcium Magnesium Total Bilirubin AST ALT Alkaline Phosphatase Troponin I 0.93 H* 08/12/17 03:07 WBC Hgb Hct Plt Count INR APTT Sodium 136 Potassium 4.5 Chloride 109 H Carbon Dioxide 19 L BUN 33 H Creatinine 1.34 H Glucose 258 H Calcium 8.2 L Magnesium 1.8 Total Bilirubin 0.5 AST 12 L ALT 12 Alkaline Phosphatase 51 Troponin I Short CBC 08/12/17 08/11/17 Range/Units 03:07 19:50 WBC 8.9 10.9 (4.3-11.1) K/mcL Hgb 9.4 L D 11.9 L (12.9-16.9) g/dL Hct 28.4 L 36.3 L (37.5-50.1) % Plt Count 217 271 (140-400) K/mcL Neutrophils # 7.2 (1.6-8.9) K/mcL BMP 08/12/17 Range/Units 03:07 Sodium 136 (136-145) mEq/L Potassium 4.5 (3.5-5.1) mEq/L Chloride 109 H (98-107) mEq/L Carbon Dioxide 19 L (23-29) mEq/L BUN 33 H (6-20) mg/dL Creatinine 1.34 H (0.70-1.30) mg/dL Glucose 258 H (70-105) mg/dL Calcium 8.2 L (8.6-10.3) mg/dL Cardiac Enzymes 08/12/17 08/11/17 Range/Units 03:07 21:30 Troponin I 0.93 H* 0.89 H* (< 0.04) ng/mL Liver Function 08/12/17 Range/Units 03:07 Total Bilirubin 0.5 (0.3-1.0) mg/dL AST 12 L (13-39) Units/L ALT 12 (7-52) Units/L Alkaline Phosphatase 51 (34-104) Units/L Albumin 3.0 L (3.5-5.7) g/dL - EKG Interpretation EKG results cardiology: personally reviewed (sinus tach), other (12 hr tele AVG HR 98, no significant pauses or arrhythmias.) Consult Discharge Plan - Plan Referrals: James Bowers MD [Primary Care Provider] - <Gui Conde - Last Filed: 08/17/17 22:26> Date of Encounter: 08/12/17 Time of Encounter: 11:00 - Attending Attestation I have personally performed a face to face evaluation on this patient. I have reviewed and agree with the care plan. History and Exam by me shows: CC: chest pain Pt reports sudden onset severe left sided chest pain, 8/10, radiating into left jaw and left arm, while at work as a [employer]. 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 Pain lasted up to thirty minutes, resolved with rest. Pain reoccurs with any strenous activity. He was evaluated by his primary care and by [place] [facility], both who recommeded admission, medication and further intervention which the patient refused against medical advice. He drove himself to [facility] ER where he presented with ongoing symptoms of chest pain and shortness of breath. Chest pain was eventually relieved with sl ntg. He continues to experience shortness of breath if lies flat past 45 degrees. PMHX: reviewed, PE: PT seen and examined, chart reviewed, agree with findings as documented IMP/Plan 1. NTEMI, with severe class 3 angina post CA, recommend urgent LHC possible, pt wants to think about it. 2. Acute CHF: acute systolic heart failure secondary to #1, slowly responding to IV diuresis, bilat plueral effusions, may need thorocentesis before can lie flat for LHC. Pt is considering his options, recommendations, will let us know later today. Assessment and Plan Discussion w patient/family: The assessment and plan as outlined above was discussed with the patient and/or family members who expressed understanding and agreement. All questions were answered. Thank you for involving us in the care of your patient. Please call with any questions. History of Present Illness History of present illness: Mr. Coelho is a 51 year old male All Systems Review: The remainder of the systems were reviewed and are negative Results 08/13/17 03:20 08/13/17 03:20
[2017-08-12] MEDS: Aspirin 81 MG TAB.CHEW PO SCH (09:23)
[2017-08-12] MEDS: Insulin LISPRO 300 UNITS/3 ML VIAL SQ SCH ×3 (09:26→16:30)
[2017-08-12] MEDS ORDERED: 0.9 % Sodium Chloride 1,000 ML ONE (10:32)
[2017-08-12] MEDS ORDERED: ISOVUE-370 200 ML INFUS..BTL IV ONE (10:32)
[2017-08-12] MEDS ORDERED: Heparin 1,000 UNITS/500 mL 500 ML ONE (10:32)
[2017-08-12] MEDS ORDERED: *HR* Heparin 10,000 UNIT/10 ML VIAL ONE (10:32)
[2017-08-12] MEDS ORDERED: Nitroglycerin 1,000 MCG/10 ML VIAL IV ONE (10:32)
--- NOTE | 2017-08-12 14:50 | IR Procedure Note ---
Date of procedure: 08/12/17 Consent Obtained: Verbal consent, Written consent Timeout: Correct patient and procedure verified, Correct site verified, Time out performed, Skin prep completed Local anesthetic: Lidocaine 1% Indications: effusion Procedure Performed: L thoracentesis Was there an resident assistant present: No Estimated blood loss (cc): 1 Complications: None; Tolerated procedure well Post Procedure Treatment Plan: CXR Specimen: serous pleural fluid
[2017-08-12 15:14] LABS: Appearance of Pleural Fl Clear (Clear); RBC,Pleural Fluid < 0.002 M/mcL
[2017-08-12 15:38] LABS: Glucose,Pleural Fluid 200 mg/dL (No Ref Range); LDH,Pleural Fluid 77 Units/L (No Ref Range); Total Protein,Pleural Fluid < 3.0 g/dL (No Ref Range)
--- NOTE | 2017-08-12 18:45 | Internal Med Progress Note ---
Date of Encounter: 08/12/17 Time of Encounter: 08:35 - Assessment and plan (1) NSTEMI (non-ST elevated myocardial infarction) Current Visit: Yes Status: Acute Assessment and plan: Presented with chest pain, noted to have troponin elevation, peak troponin at 1.01. Continue anticoagulation with IV heparin drip, started on aspirin and beta abbey and statin. Continue nitroglycerin drip for ongoing chest pain. Continue telemetry monitoring, cycle troponins. Follow-up echocardiogram. Cardiology on board, plan for possible left heart catheterization when stable. (2) Pneumonia Current Visit: Yes Status: Suspected Assessment and plan: CT angiogram of chest shows no pulmonary embolism, I lateral pleural effusions with atelectasis, pneumonia cannot be excluded. Follow-up blood cultures and continue IV Levaquin. Supportive care and supplemental oxygen. Qualifiers: Pneumonia type: due to unspecified organism Laterality: bilateral Lung location: unspecified part of lung Qualified Code(s): J18.9 - Pneumonia, unspecified organism (3) Type 2 diabetes mellitus Current Visit: Yes Status: Chronic Assessment and plan: Blood sugars somewhat elevated initially, now improving. Continue Accu-Chek blood glucose monitoring with sliding scale insulin as needed. Diabetic diet. Hemoglobin A1c noted to be 6.9%. Qualifiers: Diabetes mellitus long-term insulin use: without long-term use Diabetes mellitus complication status: without complication Qualified Code(s): E11.9 - Type 2 diabetes mellitus without complications (4) NEL (acute kidney injury) Current Visit: Yes Status: Acute Assessment and plan: Patient likely has an element of chronic kidney disease. Serum creatinine noted to be 1.17 in April, around 1.4 this month, currently somewhat improving at 1.34. Avoid nephrotoxic agents and monitor serum creatinine closely. He will be at risk for worsening creatinine with left heart catheterization. (5) Pleural effusion Current Visit: Yes Status: Acute Assessment and plan: Large bilateral pleural effusions. Could be due to acute heart failure from coronary event. Underwent left-sided thoracentesis with 900 mL fluid removal. Pleural fluid analysis consistent with transudative effusion. Continue supplemental oxygen, beta abbey and supportive care. May require IV Lasix, will hold for now due to worsening serum creatinine. - Time Spent With Patient Total time spent is greater than 50% in coordination of care (as documented) at patient's floor/unit and/or counseling patient: - Subjective Interval history: Continues to report retrosternal chest pain, worse with movement, no pain at rest. No orthopnea, shortness of breath, palpitations, leg swelling. No cough , fever, chills. Patient reports that he has been in excellent health until last , when he had complications with his eyes when he was diagnosed with diabetes and retinal bleeds. - Constitutional Vitals: Temp Pulse Resp BP Pulse Ox 98.2 F 101 17 101/73 91 08/12/17 15:52 08/12/17 17:00 08/12/17 17:00 08/12/17 17:00 08/12/17 17:00 General appearance: Present: cooperative, mild distress, A&O X 3, pleasant, answers questions appropriately - Respiratory Respiratory exam: Present: decreased breath sounds (at B/L bases), CTAB. Absent : accessory muscle use, rhonchi, wheezes - Cardiovascular Cardiovascular exam: Present: RRR, +S1, +S2. Absent: diastolic murmur, gallop, rubs, systolic murmur - GI/Abdominal GI/Abdominal exam: Present: normal bowel sounds, soft, no peritoneal signs. Absent: distended, tenderness - Extremities Exam Extremities exam: Present: full ROM, warm, radial pulses palpable and symmetrical. Absent: calf tenderness, cyanotic, pedal edema - Neurological Exam Neurological exam: Present: CN II-XII intact, oriented X3, no focal deficits. Absent: pronater drift, facial droop, speech deficit Internal Medicine: Result - Labs CBC & Chem 7: 08/12/17 03:07 08/12/17 03:07 Labs: Short CBC 08/12/17 Range/Units 03:07 WBC 8.9 (4.3-11.1) K/mcL Hgb 9.4 L D (12.9-16.9) g/dL Hct 28.4 L (37.5-50.1) % Plt Count 217 (140-400) K/mcL Neutrophils # 7.2 (1.6-8.9) K/mcL BMP 08/12/17 03:07 Sodium 136 Potassium 4.5 Chloride 109 H Carbon Dioxide 19 L BUN 33 H Creatinine 1.34 H Glucose 258 H Calcium 8.2 L Cardiac Enzymes 04/11/18 04/11/18 04/11/18 Range/Units 03:07 10:10 15:39 Troponin I 0.93 H* 1.01 H* 0.98 H* (< 0.04) ng/mL Liver Function 08/12/17 Range/Units 03:07 Total Bilirubin 0.5 (0.3-1.0) mg/dL AST 12 L (13-39) Units/L ALT 12 (7-52) Units/L Alkaline Phosphatase 51 (34-104) Units/L Albumin 3.0 L (3.5-5.7) g/dL - ABG Interpretation ABG results: PT/INR, D-dimer PT 13.4 Seconds (9.4-12.1) H 08/12/17 03:07 - Impressions Impressions Thoracentesis Ultrasound 08/12/17 00:00 IMPRESSION: Successful ultrasound guided left thoracentesis. D/ / 08/12/2017 17:04:17 George Randall MD / Natasha Hackett Interpreting Provider: George Randall MD Chest X-Ray 08/12/17 14:32 IMPRESSION: No pneumothorax following left thoracentesis. Increased dependent right basilar infiltrate and effusion. D/ / Nate Victoria MD / Nate Victoria MD Interpreting Provider: Nate Victoria MD Echocardiogram 08/12/17 22:43 Impressions: LVEF 40-45%. Global and regional LV systolic dysfunction (see Diagram below) - anteroseptal and apical hypokinesis. Indeterminate diastolic function. RV is not optimally evaluated. Mild-moderate mitral regurgitation. No pulmonary hypertension. A pleural effusion is present. No prior study for comparison. Left Ventricular Wall Motion: Rest Echo Findings The apex, apical septal and mid anterior septal vera were hypokinetic. Findings: Study Quality * Technically challenging due to clinical status. ECG Findings * Normal sinus rhythm. Left Ventricle * LVEF 40-45%. * Indeterminate diastolic function. * Normal LV chamber size and wall thickness. Right Ventricle * RV is not optimally evaluated. Left Atrium * Normal left atrial size. Right Atrium * Normal right atrial size. Mitral Valve * Normal mitral valve structure. * No mitral stenosis. * Mild-moderate mitral regurgitation. Aortic Valve * No aortic regurgitation. * Trileaflet aortic valve. * No aortic stenosis. Tricuspid Valve * Tricuspid valve not well visualized. * Trace tricuspid regurgitation. * Estimated RA pressure is 3 mmHg. * Estimated RVSP is 22 mmHg. * No pulmonary hypertension. Pulmonic Valve * Pulmonic valve is not well visualized. * No pulmonic stenosis. * No pulmonic regurgitation. Pulmonary Artery * Pulmonary artery not well visualized. Aorta * Normally sized aortic root. * Ascending aorta not well visualized. Pericardium * There is no pericardial effusion present. Interatrial Septum * No evidence of PFO by color Doppler. IVC * Normal IVC dimensions and inspiratory collapse. Pleural Effusion * A pleural effusion is present. - VTE Reasons for not Prescribing Prophylaxis: Not indicated-Anticoagulated or INR therapeutic Consult Discharge Plan - Plan Referrals: James Bowers MD [Primary Care Provider] -
[2017-08-12] MEDS: 0.9 % Sodium Chloride 1,000 ML IVC SCH ×2 (19:06→19:55)
[2017-08-12] MEDS ORDERED: Furosemide 40 MG/4 ML VIAL IVP ONE (19:22)
[2017-08-12] MEDS ORDERED: Furosemide 40 MG/4 ML VIAL ONE (19:24)
[2017-08-12] MEDS: Sennosides/Docusate Sodium TABLET PO SCH (19:54)
[2017-08-12] MEDS: Heparin 25,000 UNIT/500 ML D5W 25,000 UNIT/500 ML BAG IVC SCH ×2 (19:54→23:00)
[2017-08-12] MEDS: Levofloxacin 750 MG/150 ML 750 MG/150 ML BAG IVPB SCH (22:00)
[2017-08-13 03:29] LABS: Basophils % 0.4 %; Eosinophils # 0.1 K/mcL (0.0-0.6); Eosinophils % 1.7 %; Hematocrit 29.5 % (37.5-50.1); Hemoglobin 9.8 g/dL (12.9-16.9); Immature Granulocytes % 0.4 % (0-4); Lymphocytes # 1.2 K/mcL (0.6-4.6); Lymphocytes % 14.9 %; Mean Corpuscular HGB Conc 33.2 g/dL (31.6-35.5); Mean Corpuscular Hemoglobin 27.6 pg (28.0-33.3); Mean Corpuscular Volume 83.1 fL (83.0-100.0); Mean Platelet Volume 10.9 fL (9.4-12.4); Monocytes # 0.9 K/mcL (0.0-1.3); Monocytes % 11.6 %; Neutrophils # 5.5 K/mcL (1.6-8.9); Platelet Count 188 K/mcL (140-400); Red Blood Count 3.55 M/mcL (4.19-5.50); Red Cell Distribution Width 14.6 % (11.5-14.5)
[2017-08-13 03:53] LABS: BUN/Creatinine Ratio 18 (6-26); Blood Urea Nitrogen 23 mg/dL (6-20); Calcium 8.2 mg/dL (8.6-10.3); Carbon Dioxide 23 mEq/L (23-29); Chloride 109 mEq/L (98-107); Glucose 138 mg/dL (70-105); Osmolality,Calculated 292 (280-300); Sodium 138 mEq/L (136-145); eGFR For African Americans > 60 (> 60); eGFR For Non-African Americans 59 (> 60)
[2017-08-13 03:57] LABS: Troponin I 1.06 ng/mL (< 0.04)
[2017-08-13 04:06] LABS: Thyroid Stimulating Hormone 2.789 mcIU/mL (0.340-5.600)
[2017-08-13] MEDS: 0.9 % Sodium Chloride 1,000 ML IVC SCH (06:13)
[2017-08-13] MEDS: Metoprolol XL (24 HR) Succ 25 MG TAB.ER.24H PO SCH (08:33)
[2017-08-13] MEDS: Aspirin 81 MG TAB.CHEW PO SCH (08:34)
[2017-08-13] MEDS: Sennosides/Docusate Sodium TABLET PO SCH ×2 (08:34→21:39)
[2017-08-13] MEDS: Insulin LISPRO 300 UNITS/3 ML VIAL SQ SCH ×3 (08:34→18:53)
--- NOTE | 2017-08-13 09:18 | Event Note ---
Date of Encounter: 08/13/17 Time of Encounter: 09:15 - Cardiology Event Note Mr. Coelho denies SOB this morning. Recurrent chest pain last night after NTG gtt turned off. NTG gtt current at 5 mcg/min. Patient layed flat for 20 min this morning and sats stayed 94-95%. No distress or SOB. Patient comfortable. TTE reviewed. EF 40-45% with global and regional variations. Troponin elevated up to 1.06. Scr returned to normal. Will proceed with [facility] today for further evaluation. Patient agrees with plan.
--- NOTE | 2017-08-13 10:39 | Pulmonology Consult Note ---
<Florentin Cai - Last Filed: 08/13/17 13:10> Date of Encounter: 08/13/17 Time of Encounter: 10:39 Assessment and Plan (1) Bilateral pleural effusion Current Visit: Yes Status: Acute Patient presents with bilateral pleural effusions in the setting of NSTEMI and slight NEL. CTA 08/11/17: "No evidence of an acute aortic syndrome. Negative for acute pulmonary embolism. Large bilateral pleural effusions with interstitial and alveolar pulmonary edema. No acute abdominopelvic findings." Pleural fluid analysis and current illness consistent with transudative effusion. Likely secondary to NSTEMI as well as findings of global systolic dysfunction and hypokinesis on his echocardiogram. Pleural fluid analysis: Appearance clear, total nucleated cells 69, total protein <3, LDH 77, glucose 200. Preliminary pleural fluid Gram stain 08/12/17 without presence of bacteria, WBCs. Status post left thoracentesis on 08/12/17. No necessity for thoracentesis except for symptomatic relief or decompensation. Recommend no further workup at this time. (2) NSTEMI (non-ST elevated myocardial infarction) Current Visit: Yes Status: Acute Patient presents with chest pain and found to have elevated troponins up to 1.06. Cardiology consulted. Patient currently on nitroglycerin and heparin infusions. Echo 08/12/17: Impressions: LVEF 40-45%. Global and regional LV systolic dysfunction (see Diagram below) - anteroseptal and apical hypokinesis. Indeterminate diastolic function. RV is not optimally evaluated. Mild-moderate mitral regurgitation. No pulmonary hypertension. A pleural effusion is present. No prior study for comparison. Management as per cardiology and primary team (3) Anemia Current Visit: Yes Status: Acute As per primary team management Qualifiers: Anemia type: unspecified type Qualified Code(s): D64.9 - Anemia, unspecified (4) Type 2 diabetes mellitus Current Visit: Yes Status: Chronic As per primary team management Qualifiers: Diabetes mellitus terminal operations manager insulin use: without terminal operations manager use Diabetes mellitus complication status: without complication Qualified Code(s): E11.9 - Type 2 diabetes mellitus without complications (5) DVT prophylaxis Current Visit: Yes Status: Acute As per primary team management History of Present Illness Consult date: 08/13/17 Requesting physician: Janet Roman Reason for consult: other (Pleural effusion evaluation) Chief complaint: Chest pain History of present illness: Prakash Zirkles is a 51-year-old male with a history of diabetes, hypertension who initially presented on 08/11/17 to [place] emergency department with a chief complaint of chest pain. He was initially worked up there and recommended to be transferred here for evaluation however he signed out AGAINST MEDICAL ADVICE and drove himself here for evaluation. Upon arrival he was reevaluated in the emergency department here found to have a troponin of 0.4 with what appears to be isolated ST elevation in 1-lead. His repeat troponin here in the emergency department resulted at 0.89. He was subsequently placed on a nitroglycerin and heparin drip and admitted to the hospitalist with cardiology consultation. Reports that the timeframe of his symptoms have been present for approximately a week in duration. No recent illnesses. No cough fever. Reports that chest pain is worse with exertional activity. No nausea vomiting or diarrhea. No prior history of cardiovascular disease. Patient did have a CTA of the chest abdomen and pelvis performed which revealed large bilateral pleural effusions. The left pleural effusion was drained by interventional radiology on 08/12/17 with 900 mL of fluid removed. Recruitment Intern consulted for pleural effusion etiology evaluation. Past Med Surg Social Fam HX - Past Medical History Attestation: Yes The following information was validated with the patient. Source: patient Medical history: diabetes, hypertension Psychiatric history: no psych history - Past Surgical History Surgical History: no surgical history - Social History Smoking Status: Never smoker Smokeless Tobacco Status: No Alcohol use: none Drug use: none - Family History Mother Hx Family Cardiac Disorders: No Hx Family Cancer: Yes Father Hx Family Cardiac Disorders: No Hx Family Cancer: Yes Medications and Allergies Aspirin Enteric Coated [Aspirin EC] 325 mg PO DAILY 08/11/17 [History] Metoprolol XL (24 HR) Succ [Toprol XL] 25 mg PO DAILY 08/11/17 [History] Nitroglycerin [Nitrostat] 0.4 mg SL Q5M PRN 08/11/17 [History] metFORMIN [Glucophage] 500 mg PO BIDWM 08/11/17 [History] 3 Allergy/AdvReac Type Severity Reaction Status Date / Time mushroom Allergy Anaphylaxis Verified 08/11/17 17:39 All Systems: The remainder of the systems were reviewed and are negative - Constitutional Constitutional: as per HPI - EENT Eyes: as per HPI Ears: as per HPI Nose, mouth and throat: as per HPI - Cardiovascular Cardiovascular: as per HPI - Respiratory Respiratory: as per HPI - Gastrointestinal Gastrointestinal: as per HPI - Genitourinary Genitourinary: as per HPI - Integumentary Integumentary: as per HPI - Neurological Neurological: as per HPI - Psychiatric Psychiatric: as per HPI - Endocrine Endocrine: as per HPI - Hematologic/Lymphatic Hematologic/Lymphatic: as per HPI Physical Examination Vital Signs: Vital Signs, Last 4 Hours Temp Pulse Resp BP Pulse Ox 08/13/17 08:00 98.1 F 88 12 113/7 94 08/13/17 07:00 86 12 103/71 94 General appearance: no acute distress Eyes: nonicteric ENT: oropharynx moist Effort: normal Inspection: normal Auscultation: left: clear, right: diminished breath sounds Cardiovascular: regular rate and rhythm Gastrointestinal: soft, non-tender, non-distended Integumentary: normal Extremities: no cyanosis Musculoskeletal: no deformities normal mental status mood appropriate, affect normal Results - Laboratory Findings CBC and BMP: 08/13/17 03:20 08/13/17 03:20 PT/INR, D-dimer PT 13.4 Seconds (9.4-12.1) H 08/12/17 03:07 Abnormal lab findings: Abnormal lab results RBC 3.55 M/mcL (4.19-5.50) L 08/13/17 03:20 Hgb 9.8 g/dL (12.9-16.9) L 08/13/17 03:20 Hct 29.5 % (37.5-50.1) L 08/13/17 03:20 MCH 27.6 pg (28.0-33.3) L 08/13/17 03:20 RDW 14.6 % (11.5-14.5) H 08/13/17 03:20 PT 13.4 Seconds (9.4-12.1) H 08/12/17 03:07 APTT 72.7 Seconds (26.0-36.0) H 08/13/17 09:41 Chloride 109 mEq/L (98-107) H 08/13/17 03:20 BUN 23 mg/dL (6-20) H 08/13/17 03:20 Est GFR (Non-Af Amer) 59 (> 60) L 08/13/17 03:20 Glucose 138 mg/dL (70-105) H 08/13/17 03:20 POC Glucose 150 mg/dL (70-99) H 08/13/17 07:13 Hemoglobin A1c 6.9 % (-5.6) H 08/11/17 19:50 Calcium 8.2 mg/dL (8.6-10.3) L 08/13/17 03:20 AST 12 Units/L (13-39) L 08/12/17 03:07 Troponin I 1.06 ng/mL (< 0.04) H* 08/13/17 03:20 Serum Total Protein 5.6 g/dL (6.4-8.9) L 08/12/17 03:07 Albumin 3.0 g/dL (3.5-5.7) L 08/12/17 03:07 HDL Cholesterol 23 mg/dL (40-59) L 08/12/17 03:07 Cholesterol/HDL Ratio 5.4 (0-4.9) H 08/12/17 03:07 - Microbiology Findings Microbiology Findings: Microbiology, Last 48 Hours 08/12/17 14:20 Gram Stain - Preliminary Pleural Fluid - Diagnostic Findings Chest x-ray: report reviewed CT scan - chest: report reviewed - Clinical Findings Intake & Output: Intake & Output 08/12/17 08/13/17 08/13/17 23:59 07:59 15:59 Intake Total 550 / 550 369 / 369 Output Total 1100 / 1100 500 / 500 Balance -550 / -550 369 / 369 -500 / -500 Weight 69.8 kg Consult Discharge Plan - Plan Referrals: James Bowers MD [Primary Care Provider] - <Cliff Null - Last Filed: 08/13/17 17:14> Date of Encounter: 08/13/17 All Systems: The remainder of the systems were reviewed and are negative Physical Examination Vital Signs: Vital Signs, Last 4 Hours Temp Pulse Resp BP Pulse Ox 08/13/17 16:06 88 14 108/77 98 08/13/17 15:32 88 12 112/79 97 08/13/17 15:00 88 11 115/70 95 08/13/17 14:47 98.4 F 90 11 118/81 95 08/13/17 14:33 98.4 F 93 11 117/82 96 08/13/17 14:32 93 11 96 Results - Laboratory Findings CBC and BMP: 08/13/17 03:20 08/13/17 03:20 PT/INR, D-dimer PT 13.4 Seconds (9.4-12.1) H 08/12/17 03:07 Abnormal lab findings: Abnormal lab results RBC 3.55 M/mcL (4.19-5.50) L 08/13/17 03:20 Hgb 9.8 g/dL (12.9-16.9) L 08/13/17 03:20 Hct 29.5 % (37.5-50.1) L 08/13/17 03:20 MCH 27.6 pg (28.0-33.3) L 08/13/17 03:20 RDW 14.6 % (11.5-14.5) H 08/13/17 03:20 PT 13.4 Seconds (9.4-12.1) H 08/12/17 03:07 APTT 72.7 Seconds (26.0-36.0) H 08/13/17 09:41 Chloride 109 mEq/L (98-107) H 08/13/17 03:20 BUN 23 mg/dL (6-20) H 08/13/17 03:20 Est GFR (Non-Af Amer) 59 (> 60) L 08/13/17 03:20 Glucose 138 mg/dL (70-105) H 08/13/17 03:20 POC Glucose 150 mg/dL (70-99) H 08/13/17 07:13 Hemoglobin A1c 6.9 % (-5.6) H 08/11/17 19:50 Calcium 8.2 mg/dL (8.6-10.3) L 08/13/17 03:20 AST 12 Units/L (13-39) L 08/12/17 03:07 Troponin I 1.06 ng/mL (< 0.04) H* 08/13/17 03:20 Serum Total Protein 5.6 g/dL (6.4-8.9) L 08/12/17 03:07 Albumin 3.0 g/dL (3.5-5.7) L 08/12/17 03:07 HDL Cholesterol 23 mg/dL (40-59) L 08/12/17 03:07 Cholesterol/HDL Ratio 5.4 (0-4.9) H 08/12/17 03:07 - Microbiology Findings Microbiology Findings: Microbiology, Last 48 Hours 08/12/17 14:20 Gram Stain - Preliminary Pleural Fluid Body Fluid Culture - Preliminary - Clinical Findings Intake & Output: Intake & Output 08/13/17 08/13/17 08/13/17 07:59 15:59 23:59 Intake Total 369 / 369 216 / 216 Output Total 1150 / 1150 Balance 369 / 369 -934 / -934 Weight 69.8 kg - Attending Attestation I examined this patient and my medical decision-making was reviewed with the Resident Physician. I agree with the documented findings, disposition and treatment plan as described except to the extent set forth below. Patient seen and examined. Labs, radiology, chart personally reviewed. Agree with resident's history and physical, assessment, plan with following comments: CHURCH MUSICIAN: Patient follows commands, Pulmonary: Acceptable oxygenation and ventilation. Patient with bilateral transudate of pleural effusion which is most likely from his underlying heart disease and thoracentesis to be done only if patient becomes symptomatic Cardiovascular: Cardiology follow-up. Please call for any questions on follow-up when necessary.
[2017-08-13] MEDS ORDERED: *HR* Heparin 10,000 UNIT/10 ML VIAL ONE (13:20)
[2017-08-13] MEDS ORDERED: 0.9 % Sodium Chloride 1,000 ML ONE ×2 (13:20→13:43)
[2017-08-13] MEDS ORDERED: Nitroglycerin 1,000 MCG/10 ML VIAL IV ONE (13:20)
[2017-08-13] MEDS ORDERED: Heparin 1,000 UNITS/500 mL 500 ML ONE (13:20)
[2017-08-13] MEDS ORDERED: ISOVUE-370 200 ML INFUS..BTL IV ONE (13:20)
--- NOTE | 2017-08-13 13:50 | Pre-Sedation Evaluation ---
Pre-sedation evaluation - Pre-sedation checklist Date of procedure: 08/13/17 Procedure: [facility] Recent Vitals: Last Vital Signs Temp 98.1 F 08/13/17 08:00 Pulse 96 08/13/17 13:00 Resp 18 08/13/17 13:00 BP 125/83 08/13/17 13:00 Pulse Ox 96 08/13/17 13:00 H&P (including ROS) documented in medical record: Yes Previous reaction to sedatives/anesthetics: No Dietary Status: NPO after Midnight Airway Assessment: Patient can open mouth completely, TMJ function normal, Micrognathia (under-bite, receding chin) absent, Neck with adequate range of motion Dentition: No loose teeth or bridges Possible difficult airway: No ASA Classification *see protocol: CLASS II-Mild systemic disease Plan of Care: Pt appropriate candidate for procedure/moderate/conscious sedation , Risks/benefits of procedure/sedation discussed w/ patient/family
[2017-08-13] MEDS ORDERED: *HR* Midazolam HCl 2 MG/2 ML VIAL ONE (13:53)
[2017-08-13] MEDS ORDERED: *HR* FentaNYL (PF) 100 MCG/2 ML VIAL ONE (13:54)
[2017-08-13] MEDS ORDERED: Furosemide 40 MG/4 ML VIAL ONE (14:15)
[2017-08-13] MEDS ORDERED: Nitroglycerin 0.4 MG TAB.SUBL SL PRN (14:33)
--- NOTE | 2017-08-13 14:41 | Invasive Diagnostic Lab Proc ---
Name: Prakash Coelho Date of Study: 08/13/2017 Date: 1965 Ht: 61.0in Medical Record#: [id number] Age: 51 Wt: 158.29lb Gender: Male BSA: 1.71 Order #: [id number] BMI: 29.92 Physicians Procedure Physician: Brenda Miles MD, [facility] Referring MD: Referring MD: Staff Name Position Time In Lance Spears RT (R) Monitor 01:36 PM Mindy Spears RT (R) Scrub 01:36 PM Boyd Strong RN Seasonal Driver 01:36 PM Alexa Mcknight RN Seasonal Driver 01:56 PM Indications Indication Non-Stemi Procedures Performed Procedure L HRT ARTERY/VENTRICLE ANGIO Pre-Procedure Checklist Informed consent is complete signed and on chart. H&P is on chart. ID band is on and ID verified with patient. Patient NPO for procedure The procedure was described for the patient and questions were answered. Blood Pressure: 127/80 ECG is on chart. Rhythm: Sinus Tachycardia Plan of Care Patient will tolerate the procedure without complications. Adequate level of comfort will be maintained. Hemodynamics will remain stable Patient will recover from procedure without complications. Respiratory function will be maintained. Cardiac rhythm will remain stable. Patient temperature will be maintained. Patient and/or family have verbalized understanding of the procedure. Patient Education Chief Complaint/Reason for Test: Cardiac Cath Developmental Category: Adult (18-64 years) Developmentally Appropriate for Age: Yes Learning Barriers: None Education Needs: Procedure Education Method: Verbal Information Taught: Cardiac Cath Educational Evaluation: Able to repeat information Intravenous Access Time IV Size Location DC'd Fluid/Drip Rate Units RN 01:42 PM 20g 1 1/4" Patent On Arrival Rt Antecubital 0.9NaCl 25 ml/hr Boyd Strong RN 01:42 PM 20g 1 4" Patent On Arrival Rt Arm 01:43 PM 20g 1 1/4" Patent On Arrival Rt Antecubital Nitroglycerin 5 mcg/min Boyd Strong RN Allergies mushroom Vital Signs Time BP (mmHg) HR (bpm) O2 Sat. RR (bpm) LOC 01:41 PM 127 / 80 102 94 % 22 5 = Fully awake and oriented or at pre-proc level 01:41 PM / % 5 = Fully awake and oriented or at pre-proc level 01:56 PM / % 4 = Oriented but drowsy 01:51 PM 127 / 80 101 94 % 01:56 PM 123 / 80 100 95 % 02:01 PM 109 / 75 92 92 % 02:06 PM 113 / 76 93 91 % 02:11 PM 110 / 77 93 94 % 02:16 PM 108 / 72 91 95 % Procedural Medications Time Medication Dose Units Method Given By 01:53 PM Oxygen 3 L/min nasal cannula Boyd Strong RN 01:56 PM Versed 2 mg Intravenous Boyd Strong RN 01:56 PM Fentanyl 50 mcg Intravenous Boyd Strong RN 02:02 PM Lidocaine 2% 15 ml Subcutaneous Brenda Miles MD, FACC 02:04 PM Benadryl 25 mg Intravenous Boyd Strong RN 02:17 PM Lasix 40 mg Intravenous Boyd Strong RN ASA Classification: CLASS II- Mild systemic disease (i.e. well-controlled diabetes, hypertension, asthma, cigarette smoking) Donell Score Preprocedure Postprocedure Activity 2- Moves 4 extremities sustained head lift Activity 2- Moves 4 extremities sustained head lift Circulation 2- SBP +/= 20 points of pre-anesthetic level Circulation 2- SBP +/= 20 points of pre-anesthetic level Consciousness 2- Awake and alert oriented x 3 Consciousness 2- Awake and alert oriented x 3 O2 Saturation 2- Able to maintain O2 satruation of 92% on room air O2 Saturation 2- Able to maintain O2 satruation of 92% on room air Respiratory 2- Able to deep breathe and cough well Respiratory 2- Able to deep breathe and cough well Total Score 10 Total Score 10 Contrast Agent: Isovue Diagnostic Contrast: 66 ml Total Contrast: 66 ml Fluoro Dose: 214 mGy Procedure Log Time Note Enter By 01:36 PM Patient charges- Angio tray pack, Navilyst 3mm J, Pulse Oximetry and ACIST tubing and transducer 01:36 PM Lance Spears RT (R) Position: Monitor Time in: 13:36 01:36 PM Mindy Spears RT (R) Position: Scrub Time in: 13:36 01:36 PM Boyd Strong RN Position: Seasonal Driver Time in: 13:36 01:41 PM Pt arrived to laborer syrup machine 2 at 13:41 2 :41 PM Time: 13:41 Patient comfortable and pain free: Yes [email or web address] 01:41 PM Time: 13:41LOC: 5 = Fully awake and oriented or at pre-proc level [email or web address] 04:41 PM Clinical Presentation: Non-STEMI [email or web address] 01:44 PM CathStat 01:48 PM Physician arrived 13:48 :48 PM Meet and greet completed :48 PM Sign in performed according to hospital policy. 01:48 PM Procedure start 13:48 :48 PM Case Delayed No 01:49 PM ASA Class CLASS II- Mild systemic disease (i.e. well-controlled diabetes, hypertension, asthma, cigarette smoking) [email or web address] 01:50 PM Vitals capture started with the following parameters, Patient=Adult, Interval=5 min, Initial Xmrzcwii=607 mmHg, Deflation Rate=5 mmHg, Cuff placed on Right Arm 01:50 PM Recorded ECG: BN=463 Condition=Condition 1 01:51 PM CQ=010 bpm, HCDE=033/80 mmhg, SpO2=94.0 % 01:52 PM Hair removed from procedure site in procedure lab using clippers. Bilateral groin prepped with Chloraprep by Mindy Spears (Jaylin), then patient was draped. Skin intact. 01:53 PM Time: 13:53 Oxygen on at 3 L/min per nasal cannula by Boyd Strong RN :56 PM WD=714 bpm, HOGU=766/80 mmhg, SpO2=95.0 % 01:56 PM Alexa Mcknight RN Position: Seasonal Driver Time in: 13:56 :56 PM Time: 13:41 Patient comfortable and pain free: Yes :56 PM Time: 13:41LOC: 5 = Fully awake and oriented or at pre-proc level :56 PM Time: 13:56 Versed 2 mg Intravenous Given by Boyd Strong RN 01:57 PM Time: 13:56 Fentanyl 50 mcg Intravenous Given by Boyd Strong RN 02:00 PM What is the NYHA Class? Class 3 02:01 PM HR=92 bpm, SRAQ=933/75 mmhg, SpO2=92.0 % 02:02 PM Time out performed according to hospital policy 02:03 PM Pressure channel 1 zeroed. 02:04 PM Time: 14:02 15 ml Lidocaine 2% to right groin Subcutaneous Given by Brenda Miles MD, [facility] 02:04 PM Time: 14:04 Benadryl 25 mg Intravenous Given by Boyd Strong RN 02:05 PM Unsuccessful access attempt # 1 into the right Femoral artery. Manual pressure applied to achieve hemostasis.. 02:05 PM Access obtained by percutaneous puncture. 5Fr 10cm Terumo [place] sheath placed in right Femoral artery. [id number] 02:05 PM 0.035 145cm Navilyst 3mmJ wire [id number] 02:05 PM 5Fr FL 4 catheter inserted over the wire [facility] 02:06 PM HR=93 bpm, OWTC=221/76 mmhg, SpO2=91.0 % 02:06 PM LCA angiography performed in multiple views. 02:07 PM Recorded Pressure: Ao, HR=93, Condition=Condition 1 (Aorta) Ao 108/85/97 02:08 PM Physician consulting with Dr. Castellano 02:09 PM Catheter removed 02:09 PM 5Fr FR 4 catheter inserted over the wire [facility] 02:10 PM Recorded Pressure: Ao, HR=93, Condition=Condition 1 (Aorta) Ao 106/80/93 02:10 PM RCA angiography performed in multiple views. 02:10 PM Coronary Dominance: right 02:10 PM Catheter removed 02:11 PM HR=93 bpm, FHPK=972/77 mmhg, SpO2=94.0 % 02:11 PM 5Fr Pigtail catheter inserted over the wire [facility] 02:11 PM Catheter selectively placed in left ventricle 02:11 PM Time: 13:56 Patient comfortable and pain free: Yes 2 02:11 PM Time: 13:56LOC: 4 = Oriented but drowsy [email or web address] 02:12 PM Pressure channel 1 zero failed. 02:12 PM Pressure channel 1 zero failed. 02:12 PM Pressure channel 1 zeroed. 02:12 PM Recorded Pressure: LV, HR=94, Condition=Condition 1 (Left Ventricle) LV 88/25/26 02:12 PM Bolus angiogram of left Ventricle complete: 8 ml/sec for a total of 24 mls [email or web address] 02:12 PM Recorded Pressure: LV, Ao, HR=94, Condition=Condition 1 (Left Ventricle) LV 88/40/42, (Aorta) Ao 90/45/67 02:13 PM Physician reviewing films 02:13 PM Catheter removed 02:13 PM Bolus angiogram of right Femoral complete: 4 ml/sec for a total of 7 mls [email or web address] 02:14 PM Procedure completed at 14:14 [email or web address] 02:15 PM Arterial sheath pulled, Mynx closure device used and was Successful [id number] S/N. [email or web address] 02:16 PM Sign out completed: Radiation Dose 214.09 mGy Fluoro Time: 1.8 Isovue 370 - 200ml contrast 66 ml given by Brenda Miles MD, [facility]. Complications: NoneCardiac Rehab Consult needed: YesConfirmed administered medications: Yes [email or web address] 02:16 PM Isovue 370 - 200ml,1 Bottle(s) used. [email or web address] 02:16 PM Estimated Blood Loss: less than 20cc [email or web address] 02:16 PM Post ECG NSR [email or web address] 02:16 PM HR=91 bpm, UFIG=226/72 mmhg, SpO2=95.0 % 02:16 PM Post Blood Pressure 110/77 [email or web address] 02:16 PM Information taught Cardiac Cath [email or web address] 02:16 PM Education needs Procedure, Plan of Care, and Disease Process [email or web address] 02:16 PM Learning barriers :Sedated [email or web address] 02:16 PM Education Methods Verbal [email or web address] 02:16 PM Education evaluation Needs further instruction [email or web address] 02:17 PM Delay to floor No [email or web address] 02:17 PM Complications: None [email or web address] 02:17 PM Fluoro Time: 1.8 [email or web address] 02:17 PM Isovue 370 - 200ml contrast 66 ml given by . [email or web address] 02:17 PM Radiation Dose 214.09 mGy [email or web address] 02:17 PM Time: 14:17 Lasix 40 mg Intravenous Given by Boyd Strong RN [email or web address] 02:19 PM Site status No bleeding/hematoma - Rt Groin as reported by Mindy Spears RT (R) at 14:19 [email or web address] 02:19 PM Opsite applied [email or web address] 02:19 PM No Family [email or web address] 02:19 PM 14:19 Post Pulses Bilateral DP & PT 1+ [email or web address] 02:21 PM Vitals capture stopped. 02:23 PM Lesion found in Proximal RCA. Pre Stenosis: 70 Pre BALTAZAR Flow: [email or web address] 02:24 PM Lesion found in Mid RCA. Pre Stenosis: 99 Pre BALTAZAR Flow: [email or web address] 02:24 PM Right Coronary, Right Posterior Descending Arteries with Right Posterolateral and Acute Marginal branches with 99 % stenosis. If graft is supplying this area, 0 % stenosis [email or web address] 02:24 PM Lesion found in LMCA. Pre Stenosis: 90 Pre BALTAZAR Flow: [email or web address] 02:24 PM Left Main Coronary Artery with 90% stenosis [email or web address] 02:24 PM Lesion found in Proximal LAD. Pre Stenosis: 70 Pre BALTAZAR Flow: [email or web address] 02:24 PM Proximal Left Anterior Descending Coronary Artery with 70% stenosis. If graft is supplying this territory, 0 % stenosis. [email or web address] 02:24 PM Lesion found in Mid LAD. Pre Stenosis: 95 Pre BALTAZAR Flow: [email or web address] 02:24 PM Lesion found in Distal LAD. Pre Stenosis: 99 Pre BALTAZAR Flow: [email or web address] 02:25 PM Mid/Distal Left Anterior Descending Coronary Artery and diagonal branches with 99% stenosis. If graft is supplying this area, 0 % stenosis [email or web address] 02:25 PM Lesion found in Proximal Circumflex. Pre Stenosis: 60 Pre BALTAZAR Flow: [email or web address] 02:25 PM Lesion found in Mid Circumflex. Pre Stenosis: 99 Pre BALTAZAR Flow: [email or web address] 02:25 PM Circumflex, Obtuse Marginal, Left Posterior Descending, and Left Posterolateral Coronary Arteries with 99 % stenosis. If graft is supplying this area, 0 % stenosis [email or web address] 02:25 PM Lesion found in Ramus. Pre Stenosis: 80 Pre BALTAZAR Flow: [email or web address] 02:25 PM Ramus with 80% stenosis. If graft is supplying this area, 0 % stenosis [email or web address] 02:26 PM Time: 14:11 Patient comfortable and pain free: Yes [email or web address] 02:26 PM Time: 14:11LOC: 5 = Fully awake and oriented or at pre-proc level [email or web address] 02:29 PM Patient out of room: 14:29 [email or web address] 02:29 PM Report given to cara MAYA Pt taken to ICU Room #1. 14:29 [email or web address] Complications Complication None None Hemodynamics Pressures Site Systolic/A Wave Diastolic/V Wave Mean AO 108 85 97 AO 106 80 93 LV 88 25 26 LV 88 40 42 AO 90 45 67 Post Procedure Information Blood Pressure: 110/77 mmHg Rhythm: NSR Post procedural instructions were given Surgery consult for CABG Closure Device Time Device Success/Fail 08/13/2017 2:15:00 PM MynxGrip Successful Site Checks Time Location Status Staff Sheath In? Note 02:19 PM Rt Groin No bleeding/hematoma Mindy Spears RT (R) Pulses Time Site Pre-Procedure Post-Procedure Note 08/13/2017 1:42:00 PM Bilateral DP & PT 1+ 2:19:00 PM Bilateral DP & PT 1+ Updated by Lance Spears RT (R) on 08/13/2017 2:33:25 PM Lance Spears RT electronically signed on 08/13/2017 2:33:45 PM with status of Final
--- NOTE | 2017-08-13 17:07 | Electrocardiograph Report ---
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
--- NOTE | 2017-08-13 17:07 | Electrocardiograph Report ---
[address] [address] Test Date: 2017-08-11 Pat Name: Prakash Coelho Department: 104 Room: 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
--- NOTE | 2017-08-13 17:07 | Electrocardiograph Report ---
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
--- NOTE | 2017-08-13 17:19 | Internal Med Progress Note ---
Date of Encounter: 08/13/17 Time of Encounter: 11:00 - Assessment and plan (1) NSTEMI (non-ST elevated myocardial infarction) Current Visit: Yes Status: Acute Assessment and plan: Presented with chest pain, noted to have troponin elevation, peak troponin at 1.01. Continue anticoagulation with IV heparin drip, aspirin, beta abbey and statin. Continue nitroglycerin drip for ongoing chest pain. Cardiology following with recommendations for left heart catheterization. (2) Pneumonia Current Visit: Yes Status: Suspected Assessment and plan: Imaging shows suspicion of infiltrate concerning for pneumonia Will continue IV Levaquin Qualifiers: Pneumonia type: due to unspecified organism Laterality: bilateral Lung location: unspecified part of lung Qualified Code(s): J18.9 - Pneumonia, unspecified organism (3) Pleural effusion Current Visit: Yes Status: Acute Assessment and plan: Large bilateral pleural effusions; suspect due to acute heart failure from coronary event. Status post left-sided thoracentesis with 900 mL fluid removal. Pleural fluid analysis consistent with transudative effusion. Continue supplemental oxygen, beta abbey and supportive care. (4) Type 2 diabetes mellitus Current Visit: Yes Status: Chronic Assessment and plan: Hemoglobin A1c noted to be 6.9%. Continue coverage with sliding-scale insulin Qualifiers: Diabetes mellitus manager intermediate insulin use: without senior living use Diabetes mellitus complication status: without complication Qualified Code(s): E11.9 - Type 2 diabetes mellitus without complications (5) NEL (acute kidney injury) Current Visit: Yes Status: Acute Assessment and plan: Resolved; continue to avoid nephrotoxic agents and monitor (6) DVT prophylaxis Current Visit: Yes Status: Acute Assessment and plan: Heparin drip per ACS protocol. - Time Spent With Patient Total time spent is greater than 50% in coordination of care (as documented) at patient's floor/unit and/or counseling patient: - Subjective Interval history: Patient reports that shortness of breath has improved status post thoracentesis of left pleural fluid Patient scheduled for left heart catheter today due to elevated troponins and dyspnea - Constitutional Vitals: Temp Pulse Resp BP Pulse Ox 98.4 F 96 20 101/67 97 08/13/17 14:47 08/13/17 17:00 08/13/17 17:00 08/13/17 17:00 08/13/17 17:00 General appearance: Present: cooperative, mild distress, A&O X 3, pleasant, no acute distress, answers questions appropriately - Respiratory Respiratory exam: Present: CTAB. Absent: accessory muscle use, rales, rhonchi, wheezes - Cardiovascular Cardiovascular exam: Present: RRR, +S1, +S2. Absent: diastolic murmur, gallop, rubs, systolic murmur Internal Medicine: Result - Labs CBC & Chem 7: 08/13/17 03:20 08/13/17 03:20 Labs: Short CBC 08/13/17 Range/Units 03:20 WBC 7.8 (4.3-11.1) K/mcL Hgb 9.8 L (12.9-16.9) g/dL Hct 29.5 L (37.5-50.1) % Plt Count 188 (140-400) K/mcL Neutrophils # 5.5 (1.6-8.9) K/mcL BMP 08/13/17 03:20 Sodium 138 Potassium 4.0 Chloride 109 H Carbon Dioxide 23 BUN 23 H Creatinine 1.28 Glucose 138 H Calcium 8.2 L Cardiac Enzymes 08/13/17 Range/Units 03:20 Troponin I 1.06 H* (< 0.04) ng/mL - ABG Interpretation ABG results: PT/INR, D-dimer PT 13.4 Seconds (9.4-12.1) H 08/12/17 03:07 - Impressions Impressions Thoracentesis Ultrasound 08/12/17 00:00 IMPRESSION: Successful ultrasound guided left thoracentesis. D/ / 08/12/2017 17:04:17 George Randall MD / Natasha Hackett Interpreting Provider: George Randall MD Chest Ultrasound 08/13/17 00:00 IMPRESSION: Small to moderate right pleural effusion. The patient states he is feeling well and does not want a thoracentesis at this time. Therefore, no procedure was performed. If the patient's clinical status changes, a right thoracentesis can be performed at a later time. D/ / James Vick MD / James Vick MD Interpreting Provider: James Vick MD - VTE Reasons for not Prescribing Prophylaxis: Not indicated-Anticoagulated or INR therapeutic Consult Discharge Plan - Plan Referrals: James Bowers MD [Primary Care Provider] -
--- NOTE | 2017-08-13 17:54 | Cardiothoracic Consult Note ---
Date of Encounter: 08/13/17 Time of Encounter: 17:46 Assessment and Plan (1) NSTEMI (non-ST elevated myocardial infarction) Current Visit: Yes Status: Acute The patient is a 51-year-old recently diagnosed type II diabetic, hypertensive man who recently suffered a NSTEMI. He declined admission immediately after the episode; however, when he had recurrent substernal chest pain he was evaluated at [facility] and subsequently [facility]. A transthoracic echocardiogram revealed an LVEF 40-45% with global and regional LV systolic dysfunction. A cardiac catheterization performed today revealed severe 3 vessel CAD and it LVEF 30% with elevated LVEDP 42 mmHg. The coronary arteries are severely diseased, particularly the LAD through its entire length and the LCx a small and nondominant. The only bypassable targets or the ramus intermediate branch and the RCA branches. This however would be extremely high risk due to the patient's poor LV function. I spoke with the patient's senior principal process engineer, Dr. Brenda Miles and Dr. John Conde, and we all believe that the patient should be transferred to a tertiary [facility] for possible high risk PCI versus high risk CABG. The assessment and plan as outlined above was discussed with the patient and/or family members who expressed understanding and agreement. All questions were answered. - History of Present Illness Consult date: 08/13/17 Requesting physician: Brenda Miles Consult reason: CABG evaluation Chief complaint: NSTEMI History of present illness: Mr. Coelho is a 51 year old recently diagnosed type II diabetic, hypertensive man who had sudden onset of substernal chest pain radiating to his left arm approximately 9 days ago. The patient was at his place of employment when he had sudden onset of pain and associated shortness of breath, dyspnea on exertion , diaphoresis, and presyncope. The patient rested for a short period of time and felt better; however, the pain recurred. He was evaluated by his primary care physician and told that he probably suffered a myocardial infarction. The primary care physician recommended evaluation and possible admission, but the patient declined. Earlier this week the patient had recurrent substernal chest pain and was evaluated at [facility] He began he was told that he probably suffered a myocardial infarction and was recommended for transfer to [facility]. The patient declined ambulance transfer and signed out AMA. He then drove himself to [facility] for further evaluation. During the evaluation he was noted to have elevated troponin I levels consistent with an acute NSTEMI and was admitted for further cardiac workup. A transthoracic echocardiogram revealed an LVEF 40-45% with global and regional left ventricular systolic dysfunction involving the anteroseptal and apical vrea. He also had mild to moderate mitral regurgitation. He was recommended for cardiac catheterization and initially this was to be performed yesterday. In the catheterization laboratory; however , the patient was unable to lay supine due to profound respiratory distress. He underwent a left ultrasound-guided thoracentesis with removal of large amount of fluid. His breathing improved and he was able to lay supine. Cardiac catheterization performed today revealed severe 3 vessel CAD and an LVEF 30%. In particular, the patient has diffuse disease and a small LAD including a 70% proximal left main lesion, a 70% proximal LAD lesion, a 95% mid LAD lesion, and a 99% distal LAD lesion. The patient also has an 80% proximal ramus intermediate branch lesion, a 60% proximal LCx lesion, a 99% mid LCx lesion, a 70% proximal RCA lesion, and a 99% mid RCA lesion. The LVEDP was elevated at 42 mmHg. I have been asked to evaluate the patient for high risk CABG. Past Med Surg Social Fam HX - Past Medical History Medical history: coronary artery disease, diabetes, hypertension Psychiatric history: no psych history - Past Surgical History Surgical History: no surgical history - Social History Smoking Status: Never smoker Smokeless Tobacco Status: No Alcohol use: none Drug use: none Occupational status: employed Current living situation: Home - Independent Activity Level: Independent ambulation Recent Out of Country Travel Within the Last 8 Weeks: No Exposure or Possible Exposure to Illness During Travel: No - Family History Mother Hx Family Cardiac Disorders: No Hx Family Cancer: Yes Father Hx Family Cardiac Disorders: No Hx Family Cancer: Yes Medications and Allergies Aspirin Enteric Coated [Aspirin EC] 325 mg PO DAILY 08/11/17 [History] Metoprolol XL (24 HR) Succ [Toprol XL] 25 mg PO DAILY 08/11/17 [History] Nitroglycerin [Nitrostat] 0.4 mg SL Q5M PRN 08/11/17 [History] metFORMIN [Glucophage] 500 mg PO BIDWM 08/11/17 [History] 3 Allergy/AdvReac Type Severity Reaction Status Date / Time mushroom Allergy Anaphylaxis Verified 08/11/17 17:39 All Systems Review: The remainder of the systems were reviewed and are negative Physical Examination Vital Signs, Last 4 Hours Temp Pulse Resp BP Pulse Ox 08/13/17 17:00 96 20 101/67 97 08/13/17 16:06 88 14 108/77 98 08/13/17 15:32 88 12 112/79 97 08/13/17 15:00 88 11 115/70 95 08/13/17 14:47 98.4 F 90 11 118/81 95 08/13/17 14:33 98.4 F 93 11 117/82 96 08/13/17 14:32 93 11 96 General: Conversant, No Apparent Distress HEENT: Atraumatic, Normocephaly, Trachea midline Neck: No JVD, Normal carotid pulses Cardiac: Reg Rate and Rhythm, Normal S1 and S2, No Murmur Lungs: Normal Breath Sounds (Left lung archuleta), Decreased breath sounds (Right base) Neuro: Alert and responsive, No focal deficits noted Vascular: Normal capillary refill Abdomen: Soft, Non-tender Skin: No rashes noted on visualized skin Musculoskeletal: No Chest Wall Tenderness Extremities: No Clubbing, No Cyanosis, No Edema, Normal Pulses Results 08/13/17 03:20 08/13/17 03:20 Lab Results, Last 24 hours 08/12/17 08/13/17 08/13/17 22:30 03:20 03:20 WBC 7.8 Hgb 9.8 L Hct 29.5 L Plt Count 188 APTT 38.2 H Sodium 138 Potassium 4.0 Chloride 109 H Carbon Dioxide 23 BUN 23 H Creatinine 1.28 Glucose 138 H Calcium 8.2 L Troponin I 1.06 H* TSH 2.789 08/13/17 08/13/17 03:20 09:41 WBC Hgb Hct Plt Count APTT 51.9 H 72.7 H Sodium Potassium Chloride Carbon Dioxide BUN Creatinine Glucose Calcium Troponin I TSH Consult Discharge Plan - Plan Referrals: James Bowers MD [Primary Care Provider] -
[2017-08-13] MEDS: Levofloxacin 750 MG/150 ML 750 MG/150 ML BAG IVPB SCH (23:20)
--- NOTE | 2017-08-14 07:52 | Cardiothoracic Progress Note ---
Date of Encounter: 08/14/17 Time of Encounter: 07:51 - Assessment and plan (1) NSTEMI (non-ST elevated myocardial infarction) Current Visit: Yes Status: Acute The patient is a 51-year-old recently diagnosed type II diabetic, hypertensive man who recently suffered a NSTEMI. He declined admission immediately after the episode; however, when he had recurrent substernal chest pain he was evaluated at [facility] and subsequently [facility]. A transthoracic echocardiogram revealed an LVEF 40-45% with global and regional LV systolic dysfunction. A cardiac catheterization performed today revealed severe 3 vessel CAD and it LVEF 30% with elevated LVEDP 42 mmHg. The coronary arteries are severely diseased, particularly the LAD through its entire length and the LCx a small and nondominant. The only bypassable targets or the ramus intermediate branch and the RCA branches. This however would be extremely high risk due to the patient's poor LV function. I spoke with the patient's survey research analyst, Dr. Brenda Miles and Dr. John Conde, and we all believe that the patient should be transferred to a tertiary [facility] for possible high risk PCI versus high risk CABG. The assessment and plan as outlined above was discussed with the patient and/or family members who expressed understanding and agreement. All questions were answered. - Subjective Interval history: The patient is resting comfortably in his hospital bed. He had no chest pain last night. He is still considering transfer to [facility] for further cardiac care. Vital Signs, Last 4 Hours Temp Pulse Resp BP Pulse Ox 08/14/17 06:00 84 16 115/77 97 08/14/17 04:41 98.3 F 08/14/17 04:00 83 16 102/66 97 Oxgyen Flow Rate Oxygen Flow Rate (LPM) 4 Clinical Data, last 8 Hours Output, Urine Amount 0 Weight 08/12/17 08/13/17 08/14/17 23:59 23:59 23:59 Weight 69.8 kg 69.7 kg - Physical Examination General: Conversant, No Apparent Distress Neck: No JVD, Normal carotid pulses Cardiac: Reg Rate and Rhythm, Normal S1 and S2, No Murmur Lungs: Normal Breath Sounds, No Wheeze, Rales, Rhonchi Neuro: Alert and responsive, No focal deficits noted Vascular: Normal capillary refill Musculoskeletal: No Chest Wall Tenderness Extremities: No Clubbing, No Cyanosis, No Edema, Normal Pulses - Labs 08/13/17 03:20 08/13/17 03:20 Lab Results, Last 24 hours 08/13/17 09:41 APTT 72.7 H - VTE Reasons for not Prescribing Prophylaxis: Not indicated-Anticoagulated or INR therapeutic Consult Discharge Plan - Plan Referrals: James Bowers MD [Primary Care Provider] -
[2017-08-14] MEDS: Insulin LISPRO 300 UNITS/3 ML VIAL SQ SCH ×3 (08:06→16:18)
[2017-08-14] MEDS: 0.9 % Sodium Chloride 1,000 ML IVC SCH (08:06)
[2017-08-14] MEDS: Metoprolol XL (24 HR) Succ 25 MG TAB.ER.24H PO SCH (08:07)
[2017-08-14] MEDS: Sennosides/Docusate Sodium TABLET PO SCH (08:07)
[2017-08-14] MEDS: Aspirin 81 MG TAB.CHEW PO SCH (08:07)
--- NOTE | 2017-08-14 09:22 | Cardiology Progress Note ---
Date of Encounter: 08/14/17 Time of Encounter: 09:20 Assessment and Plan (1) NSTEMI (non-ST elevated myocardial infarction) Current Visit: Yes Status: Acute Troponins 0.40, 0.89, 0.93., 1.06. Late presentation SD. See at [facility] and diagnosed with acute SD per ED physician. Patient left AMA and presented to [facility]. S/p LHC 08/13/17. LHC revealed severe three vessel CAD. EF 30%. TTE shows EF 40- 45%. He was evaluated by CT surgery and cardiology team. He is recommended to be transferred to tertiary center to be evaluated for high risk PCI vs CABG. Patient states he is willing to go to [facility]. Primary team is notified. Continue asa, statin, and bb. NTG PRN chest pain. He is chest pain free currently. No complication with right femoral access site. Mildly tender to palpation. No hematoma. Continue to monitor. (2) CAD (coronary artery disease) Current Visit: Yes Status: Acute Severe three vessel CAD seen on LHC. Plan for transfer to [facility] as discussed above. Qualifiers: Coronary Disease-Associated Artery/Lesion type: [place] artery [place] vs. transplanted heart: jamul heart Associated angina: with unstable angina Qualified Code(s): I25.110 - Atherosclerotic heart disease of jamul coronary artery with unstable angina pectoris (3) Bilateral pleural effusion Current Visit: Yes Status: Acute Large bilateral pleural effusions on admit in the setting of acute systolic CHF. S/p left thoracentesis with 900 ml removed. Given IV lasix during procedure yesterday. (4) Acute systolic CHF (congestive heart failure) Current Visit: Yes Status: Acute Acute systolic CHF. TTE shows EF 40-45% with global and segmental systolic dysfunction. EF on LHC is 30%. Noted to have elevated EDP on LHC. CXR initially showed large bilateral pleural effusions. He did undergo left thoracentesis with 900ml removed. Given IV lasix with good response. Will repeat IV lasix today. Noted to have BLE edema. Net negative 1555 ml during hospital stay. Low sodium diet. Daily weight and strict I&O. Continue toprol XL. Will not add acI at this time due to possible CABG. Consider adding after surgery. Discussion w patient/family: The assessment and plan as outlined above was discussed with the patient and/or family members who expressed understanding and agreement. All questions were answered. Thank you for involving us in the care of your patient. Please call with any questions. Subjective Principal diagnosis: NSTEMI, CAD Interval history: Mr. Coelho was found to have severe 3 vessel CAD on [facility]. he states that he is now willing to go to [facility] for evaluation. Objective Vital Signs, Last 4 Hours Temp Pulse Resp BP Pulse Ox 08/14/17 08:00 97.9 F 93 25 123/80 97 08/14/17 06:00 84 16 115/77 97 General: Conversant, No Apparent Distress HEENT: Atraumatic, Normocephaly, Mucus Membranes Moist Neck: No JVD, Normal carotid pulses Cardiac: Reg Rate and Rhythm, Normal S1 and S2, No Murmur Lungs: Normal Breath Sounds, No Wheeze, Rales, Rhonchi Neuro: Alert and responsive, No focal deficits noted Abdomen: Soft, Non-Tender Skin: No rashes noted on visualized skin Musculoskeletal: No Chest Wall Tenderness Extremities: No Clubbing, No Cyanosis, No Edema, Normal Pulses, Other (Right femoral access site soft without hematoma, mild tenderness to palpation.) Results 08/13/17 03:20 08/13/17 03:20 Lab Results 08/13/17 09:41 APTT 72.7 H [facility] report from 08/13/17: *LMCA There is a 70% stenosis in the Proximal LMCA. * Left Anterior Descending There is a 70% stenosis in the Proximal LAD. There is a 95% long diffuse stenosis in the Mid LAD. There is a 99% stenosis in the Distal LAD. * Circumflex There is a 60% stenosis in the Proximal Circumflex. There is a 99% long diffuse stenosis in the Mid Circumflex. * Ramus There is a 80% stenosis in the Ramus. * Right Coronary Artery There is a 70% stenosis in the Proximal RCA. There is a 99% stenosis in the Mid RCA. - Imaging and Cardiology Echo: report reviewed Cardiac cath: report reviewed - EKG Interpretation EKG results cardiology: personally reviewed - VTE Reasons for not Prescribing Prophylaxis: Not indicated-Anticoagulated or INR therapeutic Consult Discharge Plan - Plan Referrals: James Bowers MD [Primary Care Provider] -
[2017-08-14] MEDS ORDERED: Furosemide 20 MG/2 ML VIAL IVP ONE (10:15)
[2017-08-14 16:01] VITALS: BP 101/61
--- NOTE | 2017-08-14 17:13 | Discharge Summary ---
- NOTES TO OUTPATIENT PROVIDER Notes to Outpatient Provider: None (transfer patient) Orders not resulted at time of discharge: Pending orders 08/12/17 08:52 CL Cardiac Catheterization [CL] Routine 08/12/17 14:20 Culture,Body Fluid [RM] Stat Gram Stain [RM] Stat Date of Encounter: 08/14/17 Time of Encounter: 15:00 - Discharge Diagnosis (1) NSTEMI (non-ST elevated myocardial infarction) Priority: Primary Status: Acute (2) Pneumonia Priority: Primary Status: Suspected Qualifiers: Pneumonia type: due to unspecified organism Laterality: bilateral Lung location: unspecified part of lung Qualified Code(s): J18.9 - Pneumonia, unspecified organism (3) Pleural effusion Priority: Primary Status: Acute (4) Type 2 diabetes mellitus Priority: Secondary Status: Chronic Qualifiers: Diabetes mellitus senior living insulin use: without senior living use Diabetes mellitus complication status: without complication Qualified Code(s): E11.9 - Type 2 diabetes mellitus without complications (5) NEL (acute kidney injury) Priority: Secondary Status: Acute Hospital course: Patient is a 51-year-old male who presented to the ER on 08/11/17 due to chest pain. He had presented to [place] [facility] and had workup performed there. It was recommended patient be transferred and admitted to [facility]. However, he signed out AMA and drove himself here. He was evaluated in ER with active chest pain. Work-up included EKG showing ST elevation in one lead only in V3 and troponin of 0.40. EKG was evaluated by Dr. Brenda iMles, and she requested patient be placed on NTG drip and heparin drip. She also did not feel he was having a STEMI. He was therefore admitted to the hospitalist service with a cardiology consult. During patients hospital stay cardiology was consulted and a [facility] revealed severe three vessel CAD. EF 30%. TTE shows EF 40-45%. He was evaluated by CT surgery and cardiology team. He is recommended to be transferred to tertiary center to be evaluated for high risk PCI vs CABG. [facility] was called and accepts the patient. Patient will be transferred to [facility]. - Time Spent with Patient Total time spent providing and/or coordinating discharge services: - Discharge Medications Home Medications: Aspirin Enteric Coated [Aspirin EC] 325 mg PO DAILY 08/11/17 [History] Metoprolol XL (24 HR) Succ [Toprol Xl] 25 mg PO DAILY 08/11/17 [History] Nitroglycerin [Nitrostat] 0.4 mg SL Q5M PRN 08/11/17 [History] metFORMIN [Glucophage] 500 mg PO BIDWM 08/11/17 [History] Atorvastatin [Lipitor] 80 mg PO HS tablet 08/14/17 [Rx] Allergies/Adverse Reactions: 3 Allergy/AdvReac Type Severity Reaction Status Date / Time mushroom Allergy Anaphylaxis Verified 08/11/17 17:39 Date of admission: 08/11/17 23:02 Primary care physician: James Bowers MD Consults: 08/12/17 13:04 Consult to Interventional Radiology [CONS] Routine Consulting Provider: Radiology Interventional [place] Reason for Consult: thoracentesis--large bilateral pleural effusions on chest CT. Call Completed: Yes 08/13/17 14:35 Consult to Cardiothoracic Surgery [CONS] Routine Consulting Provider: Cardiothoracic Surgery [place] Reason for Consult: 3VCAD, eval for CABG Call Completed: Yes 08/13/17 14:43 Consult to Packager And Strapper [CONS] Routine Reason for SW Consult: Financial concern 08/14/17 08:03 Consult to Cardiac Rehabilitation-Phase1 [CONS] Routine Comment: Reason for Consult: NSTEMI;CABG consult Call Completed: No - Constitutional Vitals: Temp Pulse Resp BP Pulse Ox 98.9 F 93 20 101/61 93 08/14/17 15:57 08/14/17 16:10 08/14/17 15:57 08/14/17 15:57 08/14/17 15:57 General appearance: Present: cooperative, mild distress, A&O X 3, pleasant, no acute distress, answers questions appropriately - Patient Status Disposition: Transfer Critical Access Hosp Condition: Good - Discharge Instructions Follow Up With: James Bowers MD [Primary Care Provider] - - VTE Reasons for not Prescribing Prophylaxis: Not indicated-Anticoagulated or INR therapeutic
== END 2017-08-14 19:58 | disposition critical access hospital (66) | DRG 280 ==
LOC: 2ANU 19:43 → EMEROO 19:43 → 2ANU 22:03 → ICNU 22:16 → SUATTDRO 23:02 → ICNU 23:15 → 2NNU 08-14 11:16
PROVIDERS: ADMIT Pediatrics; ATTEND Hospitalist

== ENCOUNTER 2017-09-26 22:37 | Inpatient (IN) ==
[2017-09-27] MEDS ORDERED: Naloxone 0.4 MG/ML INJ IVP PRN (00:40)
[2017-09-27] MEDS ORDERED: Nitroglycerin 0.4 MG TAB.SUBL SL PRN (00:43)
[2017-09-27] MEDS ORDERED: *HR* Dextrose 50 % in Water (Syg) 50 ML SYRINGE IVP PRN (00:46)
[2017-09-27] MEDS ORDERED: Dextrose Gel 15 GM/37.5 ML TUBE PO PRN ×2 (00:46)
[2017-09-27] MEDS ORDERED: D5% in Water 1,000 ML IVC PRN (00:46)
--- NOTE | 2017-09-27 00:52 | Internal Med History&Physical ---
Date of Encounter: 09/27/17 Time of Encounter: 00:47 Internal Medicine - H&P: HPI Chief complaint: Dyspnea Admitted From: Hospital to Hospital Transfer History of present illness: Mr. Coelho is a 51 year old male history of hypertension, diabetes, CAD with multiple stents presents from [place] for concerns of dyspnea. 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 Patient states that a month and a half ago he had approximately 5 stents placed. During the past 2 weeks the patient's noted he has felt dyspneic twice following scuba diving. The first episode was 2 weeks ago where he dived 22 feet and then resurfaced. Patient states his symptoms resolved temporarily. Patient was prompted to go to the ER this evening when he dove 66 feet and upon surfacing became acutely short of breath within the first 5 minutes. Patient states that he heard crackles in his lungs. Patient denied any chest pain, nausea, vomiting, diaphoresis. Patient denied any abdominal pain. Patient states he typically does not take a water pill. Patient denies a history of COPD or oxygen dependency. Patient's workup prior to this admission included basic labs which showed an elevated BNP, chest x-ray findings consistent with pulmonary edema, negative troponin. Patient was found to be hypoxic requiring noninvasive positive pressure ventilation. Patient ultimately was weaned to nasal cannula. Patient' s adamant that he does not want to be hospitalized. Patient stated he is going home tomorrow. At the time my examination the patient's resting comfortably watching TV. Patient does not have labored breathing. Patient's on nasal cannula 4 L. Patient denies any specific needs or complaints at this time. Past Med Surg Social Fam HX - Past Medical History Medical history: coronary artery disease, diabetes, hypertension Psychiatric history: no psych history - Past Surgical History Surgical History: no surgical history - Social History Smoking Status: Never smoker Smokeless Tobacco Status: No Alcohol use: none Drug use: none - Family History Mother Hx Family Cardiac Disorders: No Hx Family Cancer: Yes Father Hx Family Cardiac Disorders: No Hx Family Cancer: Yes Internal Medicine - H&P: Meds Aspirin Enteric Coated [Aspirin EC] 325 mg PO DAILY 08/11/17 [History] Metoprolol XL (24 HR) Succ [Toprol Xl] 25 mg PO DAILY 08/11/17 [History] Nitroglycerin [Nitrostat] 0.4 mg SL Q5M PRN 08/11/17 [History] metFORMIN [Glucophage] 500 mg PO BIDWM 08/11/17 [History] Atorvastatin [Lipitor] 80 mg PO HS tablet 08/14/17 [Rx] Furosemide Oral Soln [Lasix] 40 mg PO DAILY #4 solution 09/26/17 [Rx] 3 Allergy/AdvReac Type Severity Reaction Status Date / Time mushroom Allergy Anaphylaxis Verified 09/26/17 20:42 All Systems PM: A 10-system review of systems was performed and is negative for pertinent findings except as documented above in the HPI. - Constitutional Constitutional: as per HPI, no fever(s) - EENT Eyes: as per HPI - Cardiovascular Cardiovascular ROS IM: as per HPI, dyspnea, no chest pain, no edema - Respiratory Respiratory: as per HPI, cough, dyspnea - Gastrointestinal Gastrointestinal: as per HPI, no nausea, no vomiting - Genitourinary Genitourinary ROS male: as per HPI - Neurological Neurological ROS: as per HPI - Constitutional Vitals: Temp Pulse Resp BP Pulse Ox 98.3 F 100 18 153/94 98 09/26/17 23:58 09/26/17 23:58 09/26/17 23:58 09/26/17 23:58 09/26/17 23:58 General appearance: Present: cooperative, A&O X 3, no acute distress, answers questions appropriately - Head Head exam: Present: atraumatic, normocephalic - Eye Eye exam: Present: EOMI, PERRL. Absent: conjunctival injection - ENT ENT exam: Present: mucous membranes moist, normal exam - Neck Neck exam general surgery: Present: full ROM, normal inspection - Respiratory Respiratory exam: Present: rales (Dependent). Absent: accessory muscle use, respiratory distress - Cardiovascular Cardiovascular exam: Present: +S1, +S2. Absent: systolic murmur - GI/Abdominal GI/Abdominal exam: Present: soft. Absent: tenderness - Extremities Exam Extremities exam: Present: normal inspection. Absent: pedal edema - Neurological Exam Neurological exam: Present: alert, CN II-XII intact, motor sensory deficit - Skin Skin exam: Present: dry, normal color. Absent: rash - Assessment and plan (1) Acute systolic CHF (congestive heart failure) Current Visit: No Status: Acute Assessment and plan: Patient clinically has signs of acute heart failure. Patient has a mildly elevated BNP with chest x-ray findings consistent with pulmonary edema. Rales on exam. Patient was given Lasix prior to my evaluation. Patient was also placed on noninvasive positive pressure ventilation and weaned to nasal cannula. The etiology of the acute decompensation is possibly related to the patient's diving. The timing of the patient's hypoxia correlates with flash pulmonary edema induced by diving. Her artery disease with moderate to severe LV dysfunction at baseline of 30% from a heart catheter 08/13/17 PLAN -Diuresis with lasix 40mg IVP x one this am. with goal -1L-1.5 L/24hrs. -Monitor the patient respiratory status -ECHO pending -Supplemental oxygen as needed (2) Bilateral pleural effusion Current Visit: No Status: Acute Assessment and plan: Plan as above (3) Anemia Current Visit: No Status: Acute Assessment and plan: Hgb 11.2 Appears to be at baseline. Will monitor for s/sx of bleeding. Transfuse Hgb<7. Qualifiers: Anemia type: unspecified type Qualified Code(s): D64.9 - Anemia, unspecified (4) CAD (coronary artery disease) Current Visit: No Status: Acute Assessment and plan: Will resume patient's home meds. Qualifiers: Coronary Disease-Associated Artery/Lesion type: [place] artery [place] vs. transplanted heart: [place] heart Associated angina: with unstable angina Qualified Code(s): I25.110 - Atherosclerotic heart disease of [place] coronary artery with unstable angina pectoris (5) Type 2 diabetes mellitus Current Visit: No Status: Chronic Assessment and plan: Place on sliding scale insulin Qualifiers: Diabetes mellitus half-way insulin use: without termite control service representative use Diabetes mellitus complication status: without complication Qualified Code(s): E11.9 - Type 2 diabetes mellitus without complications (6) DVT prophylaxis Current Visit: No Status: Acute Assessment and plan: subcutaneous heparin - Time Spent With Patient Total time spent is greater than 50% in coordination of care (as documented) at patient's floor/unit and/or counseling patient:
--- NOTE | 2017-09-27 01:22 | Event Note ---
Date of Encounter: 09/27/17 Time of Encounter: 01:17 Patient was seen and examined. I agree with the H&P as written by the Resident Physician. Briefly, patient with CAD with multiple stents, CHF, HTN, DM, comes from [place] with acute hypoxic resp failure. Patient was scuba diving prior to onset of symptoms. Sats were in the 60s on RA and was on Bipap there but transitioned to nasal cannula. Patient received lasix there. Labs mostly unremarkable. BNP 501. CXR with pulmonary edema. A/Ox3. NAD. On 4 L O2 Tachycardic. s1, s2, No m/r/g crackles bilaterally Abdomen soft, NT, ND, +BS Trace edema. 2+ DP Admit to tele for acute hypoxic resp failure likely CHF exacerbation vs. swimmer induced pulm edema PE in the differential but given overall presentation is less likely O2 support IV lasix BID repeat echo Monitor I&Os Resume rest of cardiac meds DVT ppx
[2017-09-27] MEDS ORDERED: *HR* Heparin 5,000 UNIT/ML VIAL SQ SCH (06:00)
[2017-09-27] MEDS ORDERED: Furosemide 40 MG/4 ML VIAL IVP ONE (06:00)
[2017-09-27 06:06] LABS: Basophils % 0.1 %; Eosinophils % 0.1 %; Hematocrit 30.7 % (37.5-50.1); Hemoglobin 10.3 g/dL (12.9-16.9); Immature Granulocytes % 0.2 % (0-4); Lymphocytes # 0.7 K/mcL (0.6-4.6); Lymphocytes % 7.9 %; Mean Corpuscular HGB Conc 33.6 g/dL (31.6-35.5); Mean Corpuscular Hemoglobin 28.5 pg (28.0-33.3); Mean Corpuscular Volume 84.8 fL (83.0-100.0); Mean Platelet Volume 11.5 fL (9.4-12.4); Monocytes # 0.3 K/mcL (0.0-1.3); Monocytes % 3.1 %; Neutrophils # 7.5 K/mcL (1.6-8.9); Platelet Count 173 K/mcL (140-400); Red Blood Count 3.62 M/mcL (4.19-5.50); Red Cell Distribution Width 13.5 % (11.5-14.5); Segmented Neutrophils % 88.6 %
[2017-09-27 06:29] LABS: BUN/Creatinine Ratio 21 (6-26); Blood Urea Nitrogen 22 mg/dL (6-20); Calcium 9.2 mg/dL (8.6-10.3); Carbon Dioxide 29 mEq/L (23-29); Chloride 105 mEq/L (98-107); Glucose 280 mg/dL (70-105); Osmolality,Calculated 303 (280-300); Potassium 3.8 mEq/L (3.5-5.1); Sodium 140 mEq/L (136-145); eGFR For African Americans > 60 (> 60); eGFR For Non-African Americans > 60 (> 60)
[2017-09-27] MEDS ORDERED: Insulin LISPRO 300 UNITS/3 ML VIAL SQ SCH ×2 (07:30→21:00)
[2017-09-27 07:48] VITALS: BP 114/67
[2017-09-27] MEDS ORDERED: Aspirin Enteric Coated 325 MG Tablet PO SCH (09:00)
[2017-09-27] MEDS ORDERED: Metoprolol XL (24 HR) Succ 25 MG TAB.ER.24H PO SCH (09:00)
[2017-09-27] MEDS ORDERED: *HR* Metformin 500 MG TABLET PO SCH (09:43)
--- NOTE | 2017-09-27 12:02 | Discharge Summary ---
- NOTES TO OUTPATIENT PROVIDER Notes to Outpatient Provider: He has moderate systolic heart failure. He developed difficulty breathing/pulmonary edema shortly after scuba diving. He is to check with his ad copy writer, whether he can do those activities. Orders not resulted at time of discharge: Pending orders 09/27/17 00:43 EV echocardiogram Routine 09/27/17 17:05 Troponin I Q6H Date of Encounter: 09/27/17 Time of Encounter: 11:59 - Discharge Diagnosis (1) Acute on chronic systolic heart failure Priority: Primary Status: Acute (2) CAD (coronary artery disease) Priority: Secondary Status: Acute Qualifiers: Coronary Disease-Associated Artery/Lesion type: [place] artery [place] vs. transplanted heart: [place] heart Associated angina: with unstable angina Qualified Code(s): I25.110 - Atherosclerotic heart disease of [place] coronary artery with unstable angina pectoris (3) Type 2 diabetes mellitus Priority: Secondary Status: Chronic Qualifiers: Diabetes mellitus mcfp insulin use: without mcfp use Diabetes mellitus complication status: without complication Qualified Code(s): E11.9 - Type 2 diabetes mellitus without complications Hospital course: Mr. Coelho is a 51 year old male. He has underlying coronary artery disease and systolic heart failure. The ejection fraction is about 30%. He does have multiple stents. He's also treated for type 2 diabetes mellitus and hypertension. The patient developed difficulty breathing after scuba diving. He' s chest x-ray at admission showed pulmonary congestion. He's troponin levels were slightly elevated due to moderate/severe congestive heart failure. He got treatment with IV diuretics. Repeated chest x-ray showed decreased pulmonary congestion. The patient felt the baseline at the time of discharge. Discharge discussed with: patient, family - Time Spent with Patient Total time spent providing and/or coordinating discharge services: 40 minutes. The patient was admitted 18 minutes after midnight. He was discharged home in the early afternoon. Greater than 30 minutes (35 minutes) - Discharge Medications Home Medications: Aspirin Enteric Coated [Aspirin EC] 325 mg PO DAILY 08/11/17 [History] Metoprolol XL (24 HR) Succ [Toprol Xl] 25 mg PO DAILY 08/11/17 [History] Nitroglycerin [Nitrostat] 0.4 mg SL Q5M PRN 08/11/17 [History] metFORMIN [Glucophage] 500 mg PO BIDWM 08/11/17 [History] Atorvastatin [Lipitor] 40 mg PO HS 09/27/17 [History] Clopidogrel [Plavix] 75 mg PO DAILY 09/27/17 [History] Furosemide [Lasix] 20 mg PO DAILY 09/27/17 [History] Lisinopril 2.5 mg PO DAILY 09/27/17 [History] Allergies/Adverse Reactions: 3 Allergy/AdvReac Type Severity Reaction Status Date / Time mushroom Allergy Anaphylaxis Verified 09/26/17 20:42 Date of admission: 09/27/17 00:18 Primary care physician: James Bowers MD Discharging clinician: mOi Valverde Anticipated date of discharge: 09/27/17 - Constitutional Vitals: Temp Pulse Resp BP Pulse Ox 98.0 F 88 18 114/67 97 09/27/17 07:43 09/27/17 07:43 09/27/17 07:43 09/27/17 07:43 09/27/17 07:43 General appearance: Present: cooperative, A&O X 3, no acute distress, answers questions appropriately - Respiratory Respiratory exam: Present: CTAB. Absent: accessory muscle use, rales, rhonchi, wheezes - Cardiovascular Cardiovascular exam: Present: RRR, +S1, +S2. Absent: diastolic murmur, gallop, rubs, systolic murmur - GI/Abdominal GI/Abdominal exam: Present: normal bowel sounds, soft. Absent: distended, tenderness - Patient Status Disposition: Home, Self-Care Condition: Good - Discharge Instructions Instructions: Myocardial Infarction (DC), Heart Failure (DC), Chest Pain (DC), Anemia (GEN) Follow Up With: James Bowers MD [Primary Care Provider] - (left msg for f/u appt, pt. notified of need for follow up in 1 week) Additional Instructions: This is the same day admission and discharge. The patient was admitted at 00: 18 a.m. The patient was discharged after 12 PM. The patient needs to see his ad copy writer in the next two weeks. - Diet and Activity Activity: resume usual activities as tolerated - VTE Deep Vein Thrombosis/Pulmonary Embolism Present on Admission: No
== END 2017-09-27 13:00 | disposition home or self-care (01) | DRG 291 ==
LOC: 2NNU
PROVIDERS: ADMIT Internal Medicine; ATTEND Internal Medicine